=== PATIENT | male | born 1980 | race African-American/Black ===

== ENCOUNTER 2023-11-21 11:38 | Emergency (ER) | payer OTHER, SELFPAY ==
--- NOTE | ~2023-11-21 | XR_ITS ---
EXAMINATION: XR knee LT 3V DATE: 11/21/2023 13:44 INDICATION: Left knee pain TECHNIQUE: Three views of the left knee were obtained. COMPARISON: None. FINDINGS: Alignment is normal. No fracture or osteochondral lesion. Joint spaces are normal with no e rosions. No joint effusion/synovitis. Soft tissues are unremarkable. IMPRESSION: 1. No acute osseous abnormality. Reviewed, dictated and finalized at location [facility] [employer]
[2023-11-21 12:19] VITALS: BP 135/96; PULSE 91; RESP 20; TEMP 37.2; O2SAT 100
--- NOTE | 2023-11-21 13:42 | ED.GENADULT ---
HPI - General Adult General Chief complaint: Extremity Injury, Lower Stated complaint: left knee pain Time Seen by Provider: 11/21/23 12:50 Source: patient Mode of arrival: ambulatory Limitations: no limitations History of Present Illness HPI narrative: this is a 43-year-old male who presents to the ED with chief complaint of left knee pain ongoing for several years. Reports it is aggravated worsened normal. Reports pain is worse with walking and gets worse throughout the day. States he was seen by another facility recently and they did not give him any pain pills. Denies fevers, chills, nausea, vomiting, Or any further sites of pain. Related Data Allergies Allergy/AdvReac Type Severity Reaction Status Date / Time No Known Allergies Allergy Verified 11/21/23 13:56 Review of Systems Review of Systems: All systems as dictated in HPI Exam Narrative: GENERAL: Well-appearing, well-nourished, and in no acute distress. HEAD: Normocephalic, atraumatic. EYES: PERRLA and EOMI. ENT: Nares clear, no rhinorrhea or epistaxis. Mucous membranes moist. Oropharynx without tonsillar hypertrophy exudate or other lesions. NECK: Supple. No adenopathy or masses. CHEST: No respiratory distress. Clear to auscultation. No wheezes rales or rhonchi HEART: Regular rate and rhythm. No murmur heard. Normal peripheral pulses. ABDOMEN: Soft, nontender, nondistended, normal active bowel sounds. MSK: Left lower extremity: no deformity or swelling to the knee. No bruising. No erythema or warmth. Nearly full active range of motion. mild tenderness to the bilateral joint lines. Neurovascular intact distally. No calf swelling Right lower extremity: Benign SKIN: Warm, dry, no rash. NEURO: Alert and oriented x3. No focal deficits. PSYCH: Normal mood and affect. Course Vital Signs Vital signs: Vital Signs Temperature 99.0 F 11/21/23 12:19 Pulse Rate 91 11/21/23 12:19 Respiratory Rate 20 11/21/23 12:19 Blood Pressure 135/96 H 11/21/23 12:19 Pulse Oximetry 100 11/21/23 12:19 Oxygen Delivery Room Air 11/21/23 12:19 Temperature 99.0 F 11/21/23 12:19 Pulse Rate 91 11/21/23 12:19 Respiratory Rate 20 11/21/23 12:19 Blood Pressure 135/96 H 11/21/23 12:19 Pulse Oximetry 100 11/21/23 12:19 Oxygen Delivery Room Air 11/21/23 12:19 Medical Decision Making MDM Narrative Medical decision making narrative: this is a 43-year-old male who presents to the ED with chief complaint of left knee pain ongoing for several years. Vitals are normal. Exam is benign. No evidence of any inflammatory arthritis. X-rays are normal. Symptoms consistent with Chronic joint pain. He was given prescriptions for steroids and naproxen. Pt will be discharged in stable condition. Return precautions given and supportive measures discussed. Pt is understanding and agreeable with plan for discharge and follow-up with PCP. Vital Signs Vital Signs: Vital Signs Temperature 99.0 F 11/21/23 12:19 Pulse Rate 91 11/21/23 12:19 Respiratory Rate 20 11/21/23 12:19 Blood Pressure 135/96 H 11/21/23 12:19 Pulse Oximetry 100 11/21/23 12:19 Oxygen Delivery Room Air 11/21/23 12:19 Temperature 99.0 F 11/21/23 12:19 Pulse Rate 91 11/21/23 12:19 Respiratory Rate 20 11/21/23 12:19 Blood Pressure 135/96 H 11/21/23 12:19 Pulse Oximetry 100 11/21/23 12:19 Oxygen Delivery Room Air 11/21/23 12:19 Discharge Plan Discharge Clinical Impression: Chronic knee pain Qualifiers: Laterality: left Qualified Code(s): M25.562 - Pain in left knee Patient Disposition: Home, Self-Care Condition: Stable Instructions: Antibiotic Form Additional Instructions: Your x-ray is without any acute findings today. Please use steroids and naproxen for pain control. You can use the crutches as needed for assistance with ambulation. Follow-up with primary care doctor. If you have any new
[2023-11-21] MEDS: NAPROXEN 500 MG TABLET PO (13:57)
[2023-11-21] MEDS: predniSONE 20 MG TABLET 40 MG PO (14:02)
--- NOTE | 2023-11-21 14:07 | PC.NURSE ---
Baldo wrapped to left knee and crutch instructions and demo given.
== END 2023-11-21 14:12 | disposition home or self-care (01) ==
LOC: ANHED 14:01
PROVIDERS: Emergency Provider Physician Assistant; PCP Registered Nurse
DX: M25.562 Pain in left knee (principal); G89.29 Other chronic pain
CPT/HCPCS: 73562; 99283; A9270; J7512

== ENCOUNTER 2024-11-16 09:40 | Emergency (ER) | payer OTHER, SELFPAY ==
--- NOTE | ~2024-11-16 | XR_ITS ---
EXAMINATION: XR hip RT 2V w AP pelvis DATE: 11/16/2024 11:26 INDICATION: Right hip pain. Fall. TECHNIQUE: An anteroposterior view of the pelvis and 2 views of right hip were obtained. COMPARISON: None. FINDINGS: Alignment is normal. No fracture. There is sclerosis in the head of right femur, consistent with osteonecrosis. There is mild right hip osteoarthritis. IMPRESSION: 1. Osteonecrosis of right femoral head. 2. Mild right hip osteoarthritis. Reviewed, dictated and finalized at location A. 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
[2024-11-16 09:49] VITALS: BP 116/72; PULSE 78; RESP 18; TEMP 36.6; O2SAT 99
--- OUTSIDE RECORDS SUMMARY | 2024-11-16 10:17 | XMS_ITS | Data Portability ---
Author Organization [facility] CORYMartín Woody Garrett Address [address] [place] [address] Care Team Providers Care Rhit Name Role Phone JOCELYN PFEIFFER [employer] Director KIRAN HANLEY Scientific Linguist ELLE PRATER [employer] Director Unavailable CHRISTINA BUCHANAN Primary Care Provider Assessment No assessment recorded. Plan of Treatment Reminders Order Date Submit Date Provider Last Modified By Organization Details Last Modified Time Details Appointments NEW PATIEN T 45 2024 01:00P M Zehra Ayoub LCSW Not available Not available Not available ANY 15 2024 11:00A M Christina Buchanan [employer] Not available Not available Not available Lab testos terone , free + total, serum 2023 024 [facility], [address] [facility], [address], [place], [address], 04/12/2024 15:07:48 lipid panel, serum 2024 025 [facility], [address] [facility] [facility], [address], [place], [address], 11/05/2024 22:07:47 CMP, serum or plasma 2024 025 [facility], [address] [facility], [address], [place], [address], 11/05/2024 22:07:48 TSH, ultra- sensit eduar, serum 2024 025 [facility], [address] [place] [address], [address], [place], [address], 11/06/2024 12:10:48 albumi n/crea tinine , mass ratio, urine 2024 025 [facility], [address] [place] [address], [address], [place], [address], 11/06/2024 12:10:47 CBC w/ auto diff 2024 025 [facility], [address] [place] [address], [address], [place], [address], 11/05/2024 22:07:50 HbA1c (hemog lobin A1c), blood 2024 025 [facility] In-Office Order, Internal Use Only DO Not Attach Compendium DO Not Attach Compendium, Do Not Delete/merge, [id number] 11/05/2024 12:22:12 Referral physic al therap ist referr al 2023 024 [facility] Patient Access Centralized Scheduling, Centralized Scheduling, [address] [place], [address], 11/18/2023 12:54:40 podiat rist referr al 2023 024 [facility], [address], [place], [address], 04/29/2024 14:58:55 physic al therap ist referr al - R thigh strain R knee pain over 2 months 2023 024 [facility] Patient Access Centralized Scheduling, Centralized Scheduling, [address] [place], [address], 11/11/2024 18:17:48 Procedures pulse oximet ry (PROC) 03/25/ 2024 03/25/2 024 [facility] In-Office Order, Internal Use Only DO Not Attach Compendium DO Not Attach Compendium, Do Not Delete/merge, [id number] 01/06/2024 15:44:00 pulse oximet ry (PROC) 2023 024 [facility] In-Office Order, Internal Use Only DO Not Attach Compendium DO Not Attach Compendium, Do Not Delete/merge, [id number] 04/08/2024 15:45:42 pulse oximet ry (PROC) 2023 024 [facility] In-Office Order, Internal Use Only DO Not Attach Compendium DO Not Attach Compendium, Do Not Delete/merge, [id number] 07/09/2024 10:41:05 pulse oximet ry (PROC) 2024 025 [facility] In-Office Order, Internal Use Only DO Not Attach Compendium DO Not Attach Compendium, Do Not Delete/merge, [id number] 11/05/2024 11:48:13 Surgeries None record ed. Imaging XR, knee, 3 view 2023 024 [facility] ([facility]), [address] [place], [address], 11/19/2023 10:51:00 Medication Orders atorva statin 40 mg tablet 2023 024 [facility], [address] [place] [address], [id number], 01/06/2024 17:17:49 hydrox yzine HCl 25 mg tablet 2023 024 [facility], [address], [id number], 04/08/2024 14:49:28 triamc inolon e aceton carolyn 0.1 % topica l cream 2023 024 [facility], [address] [place] [address], [id number], 01/08/2024 12:24:36 famoti dine 20 mg tablet 2023 [facility], [facility], [address] [place] [address], [id number], 02/06/2024 15:10:49 meloxi cam 7.5 mg tablet 2023 [facility], [facility], [address] [place] [address], [id number], 04/08/2024 14:49:49 flutic asone propio vianey 50 mcg/ac tuatio n nasal spray, suspen liliana 2023 [facility], [facility], [address] [place] [address], [id number], 01/06/2024 17:17:52 lorata dine 10 mg tablet 2023 [facility], [facility], [address] [place] [address], [id number], 01/07/2024 17:16:21 paola ukast 10 mg tablet 2023 [facility], [facility], [address] [place] [address], [id number], 06/09/2024 18:31:43 gabape ntin 300 mg capsul e 2023 [facility], [facility], [address] [place] [address], [id number], 06/04/2024 17:38:07 atorva statin 40 mg tablet 2023 [facility], [facility], [address] [place] [address], [id number], 06/09/2024 18:31:44 silden afil 100 mg tablet 2023 024 [facility], [facility], [address] [place] [address], [id number], 10/29/2024 13:42:46 meloxi cam 15 mg tablet 2023 [facility], [facility], [address] [place] [address], [id number], 06/09/2024 18:31:44 triamc inolon e aceton carolyn 0.1 % topica l cream 2023 [facility], [facility], [address] [place] [address], [id number], 04/08/2024 15:35:19 famoti dine 20 mg tablet 2023 [facility]24 [facility], [address] [place] [address], [id number], 04/08/2024 15:35:21 flutic asone propio vianey 50 mcg/ac tuatio n nasal spray, suspen liliana 2023 024 [facility], [facility], [address] [place] [address], [id number], 06/09/2024 18:31:45 lorata dine 10 mg tablet 2023 024 [facility], [facility], [address] [place] [address], [id number], 06/04/2024 17:38:07 paola ukast 10 mg tablet 2023 024 [facility], [facility], [address] [place] [address], [id number], 04/08/2024 15:00:08 ketoro lac 30 mg/mL (1 mL) inject ion soluti on 2023 [email or web address] Not available 07/09/2024 16:04:21 gabape ntin 300 mg capsul e 2023 [facility], [facility], [address] [place] [address], [place], [place], [id number], 10/29/2024 13:42:46 atorva statin 40 mg tablet 2023 [facility], [facility], [address] [place] [address], [place], [place], [id number], 10/29/2024 13:42:47 triamc inolon e aceton carolyn 0.1 % topica l cream 2023 [facility], [facility], [address] [place] [address], [place], [place], [id number], 07/09/2024 14:07:19 famoti dine 20 mg tablet 2023 [facility], [address] [place] [address], [id number], 07/09/2024 14:07:18 flutic asone propio vianey 50 mcg/ac tuatio n nasal spray, suspen liliana 2023 [facility], [facility], [address] [place] [address], [place], [place], [id number], 10/29/2024 13:42:46 lorata dine 10 mg tablet 2023 [facility], [facility], [address] [place] [address], [id number], 10/29/2024 13:42:41 paola ukast 10 mg tablet 2023 [facility], [facility], [address] [place] [address] [address], [id number], 10/29/2024 13:42:43 gabape ntin 300 mg capsul e 2024 025 [facility], [address] [place] [address], [id number], 11/05/2024 11:51:32 atorva statin 40 mg tablet 2024 025 [facility], [address] [place] [address], [id number], 11/05/2024 11:42:16 Medrol (Emilio) 4 mg tablet s in a dose pack 2024 025 [facility], [address] [place] [address], [id number], 11/05/2024 11:51:31 famoti dine 20 mg tablet 2024 025 [facility], [address] [place] [address], [id number], 11/05/2024 11:51:31 flutic asone propio vianey 50 mcg/ac tuatio n nasal spray, suspen liliana 2024 025 [facility], [address] [place] [address], [id number], 11/05/2024 11:51:32 lorata dine 10 mg tablet 2024 025 [facility], [address] [place] [address], [id number], 11/05/2024 11:51:30 paola ukast 10 mg tablet 2024 025 [facility], [address] [place] [address], [id number], 11/05/2024 11:51:32 Patient TargetsNo targets recorded. Patient Instructions Encounter Date Encounter Id Patient Instructions Last Modified By Organization Details Last Modified Time 11/18/2023 [id number] knee arthritis: care instructions lorenzo Not available 11/18/2023 12:25:35 ? ? Rest your leg while you have pain, and avoid standing for long periods of time. ? ? Prop up your leg at or above the level of your heart when possible. ? ? Make sure you are eating a balanced diet that is rich in calcium, potassium, and magnesium, especially if you are . ? ? Put ice or a cold pack on the area for 10 to 20 minutes at a time. Put a thin cloth between the ice and your skin. ? ? Your leg may be in a splint, a brace, or an elastic bandage, and you may have crutches to help you walk. yarauz Not available 11/18/2023 12:26:08 01/06/2024 [id number] knee arthritis: care instructions yarauz Not available 01/06/2024 15:36:41 A healthy lifestyle: care instructions yarauz Not available 01/06/2024 15:36:41 learning about stress yarauz Not available 01/06/2024 15:36:41 Indigestion (Dyspepsia): Care Instructions yarauz Not available 01/06/2024 15:36:40 ??Avoid all breads, potatoes, cereal, pasta, rice, margarine, refined sugars, milk yogurt, ice cream, juices, soda (including diet), beer, and man-made or manufactured desserts.?? Enjoy steak, fish, chicken (no skin), pork, butter, vegetables, beans, nuts, whole eggs,?? cheese (low fat or skim), cream in your coffee. Keep groin area clean and dry stop smoking test results Benefits risks of psychotropic medications if you develop suicidal thoughts or behaviors seek immediate reevaluation avoid alcohol when taking psychotropic medications if you develop fevers, chills, diarrhea, muscle symptoms or seizures to seek immediate reevaluation take your medicine as directed Pt. advised to call 911 or go to a local Emergency Department with any SI or HI, thoughts of self harm or any psychiatric emergency. Pt. is deemed safe and appropriate for continued out patient treatment. Pt. advised of the risk benefit ratio of medication, possible side effects and interactions of the meditations. Pt. wishes to continue with the treatment plan. Pt. advised to call or come in sooner than the scheduled appt. if there are any worsening of symptoms or problems with the medication yarauz Not available 01/06/2024 15:42:24 04/08/2024 [id number] knee arthritis: care instructions yarauz Not available 04/08/2024 14:46:49 A healthy lifestyle: care instructions yarauz Not available 04/08/2024 14:46:49 learning about stress yarauz Not available 04/08/2024 14:46:49 Indigestion (Dyspepsia): Care Instructions yarauz Not available 04/08/2024 14:46:49 ??Avoid all breads, potatoes, cereal, pasta, rice, margarine, refined sugars, milk yogurt, ice cream, juices, soda (including diet), beer, and man-made or manufactured desserts.?? Enjoy steak, fish, chicken (no skin), pork, butter, vegetables, beans, nuts, whole eggs,?? cheese (low fat or skim), cream in your coffee. Keep groin area clean and dry stop smoking test results Do not use nitroglycerine Do not take viagra more than once in 24 hours Take viagra 1/2-1 hour before sexual activity yarauz Not available 04/08/2024 14:49:21 07/09/2024 [id number] hamstring strain : care instructions yarauz Not available 07/09/2024 10:37:15 quadriceps strai n: care instructions yarauz Not available 07/09/2024 10:37:16 knee arthritis: care instructions yarauz Not available 07/09/2024 10:37:15 A healthy lifestyle: care instructions yarauz Not available 07/09/2024 10:37:15 Indigestion (Dyspepsia): Care Instructions yarauz Not available 07/09/2024 10:37:15 ??Avoid all breads, potatoes, cereal, pasta, rice, margarine, refined sugars, milk yogurt, ice cream, juices, soda (including diet), beer, and man-made or manufactured desserts.?? Enjoy steak, fish, chicken (no skin), pork, butter, vegetables, beans, nuts, whole eggs,?? cheese (low fat or skim), cream in your coffee. Keep groin area clean and dry stop smoking test results go to PT as directed avoid eating late at night avoid citric foods, chocolate, mints, alcohol, fatty foods, caffeine, spicy foods do not lie down immediately after meals elevate?? head of bed may use pepcid PRn yarauz Not available 07/09/2024 14:01:33 11/05/2024 [id number] knee arthritis: care instructions yarauz Not available 11/05/2024 11:38:39 A healthy lifestyle: care instructions yarauz Not available 11/05/2024 11:38:39 Indigestion (Dyspepsia): Care Instructions yarauz Not available 11/05/2024 11:38:39 ??Avoid all breads, potatoes, cereal, pasta, rice, margarine, refined sugars, milk yogurt, ice cream, juices, soda (including diet), beer, and man-made or manufactured desserts.?? Enjoy steak, fish, chicken (no skin), pork, butter, vegetables, beans, nuts, whole eggs,?? cheese (low fat or skim), cream in your coffee. Keep groin area clean and dry stop smoking test results go to PT as directed avoid eating late at night avoid citric foods, chocolate, mints, alcohol, fatty foods, caffeine, spicy foods do not lie down immediately after meals elevate?? head of bed may use pepcid PRn yarauz Not available 11/05/2024 11:30:40 Reason for Referral Physical Therapist Referral for Pain of left knee region Referring Physician: [facility], Encounter Date: 11/18/2023 [employer] Director Referral for Daniel enital pes planus Congenital pes planus Referring Physician: Christina Buchanan [facility], Encounter Date: 04/08/2024 Physical Therapist Referral for Strain of muscle and/or tendon of thigh R thigh strain R knee pain over 2 months Referring Physician: [facility], Encounter Date: 07/09/2024 Results Created Date Observation Date Name Description Value Unit Range Abnormal Flag Note LastModifiedBy Organization Detail LastModifiedTime 10/29/1910/29/2023 LIPID PANEL cholesterol, total 287 mg/dL 100-19 9 above high normal Not Available [facility] [address] [place] [address], [address], 10/29/2023 23:07:43 10/29/19 24 10/29/2023 LIPID PANEL triglyceride s 138 mg/dL 0-149 Not Available [facility] [address] [place] [address], [id number], 10/29/2023 23:07:43 10/29/19 24 10/29/2023 LIPID PANEL HDL cholesterol 78 mg/dL 40-999 Not Available [facility] [address] [place] [address], [address], 10/29/2023 23:07:43 10/29/19 24 10/29/2023 LIPID PANEL VLDL cholesterol she 28 mg/dL 5-40 Not Available [facility] [address] [place] [address], [address], 10/29/2023 23:07:43 10/29/19 24 10/29/2023 LIPID PANEL LDL chol calc (nih) 201 mg/dL 0-99 above high normal Not Available [facility] [address] [place] [address], [id number], 10/29/2023 23:07:43 10/29/19 24 10/29/2023 COMP. METAB OLIC PANEL (14) glucose 85 mg/dL 70-99 Not Available [facility] [address] [place] [address], [address], 10/29/2023 23:07:44 10/29/19 24 10/29/2023 COMP. METAB OLIC PANEL (14) BUN 19 mg/dL 6-24 Not Available [facility] [address] [place] [address], [address], 10/29/2023 23:07:44 10/29/19 24 10/29/2023 COMP. METAB OLIC PANEL (14) creatinine 0.72 mg/dL 0.76-1 .27 below low normal Not Available [facility] [address] [place] [address], [address], 10/29/2023 23:07:44 10/29/19 24 10/29/2023 COMP. METAB OLIC PANEL (14) eGFR 117 >=60 Units for eGFR value s are mL/mi n/1.7 3 The eGFR Calcu latio n has not been valid ated for patie nts under the age of 18. If test resul ts are displ ayed for a patie nt under the age of 18, disre simran that value . Not Available [facility] [address] [place] [address], [address], 10/29/2023 23:07:44 10/29/19 24 10/29/2023 COMP. METAB OLIC PANEL (14) BUN/creatini ne ratio 27 9-20 above high normal Not Available [facility] [address] [place] [address], [address], 10/29/2023 23:07:44 10/29/19 24 10/29/2023 COMP. METAB OLIC PANEL (14) sodium 142 mmol/ L 134-14 4 Not Available [facility] [address] [place] [address], [address], 10/29/2023 23:07:44 10/29/19 24 10/29/2023 COMP. METAB OLIC PANEL (14) potassium 4.6 mmol/ L 3.5-5. 2 Not Available [facility] [address] [place] [address], [address], 10/29/2023 23:07:44 10/29/19 24 10/29/2023 COMP. METAB OLIC PANEL (14) chloride 100 mmol/ L 96-106 Not Available [facility] [address] [place] [address], [address], 10/29/2023 23:07:44 10/29/19 24 10/29/2023 COMP. METAB OLIC PANEL (14) carbon dioxide, total 26 mmol/ L 20-29 Not Available [facility] [address] [place], [address], 10/29/2023 23:07:44 10/29/19 24 10/29/2023 COMP. METAB OLIC PANEL (14) calcium 10.2 mg/dL 8.7-10 .2 Not Available [facility] [address] [place], [address], 10/29/2023 23:07:44 10/29/19 24 10/29/2023 COMP. METAB OLIC PANEL (14) protein, total 7.9 g/dL 6.0-8. 5 Not Available [facility] [address] [place] [address], [address], 10/29/2023 23:07:44 10/29/19 24 10/29/2023 COMP. METAB OLIC PANEL (14) albumin 5.1 g/dL 4.1-5. 1 Not Available [facility] [address] [place], [address], 10/29/2023 23:07:44 10/29/19 24 10/29/2023 COMP. METAB OLIC PANEL (14) globulin, total 2.8 g/dL 1.5-4. 5 Not Available [facility] [address] [place] [address], [address], 10/29/2023 23:07:44 10/29/19 24 10/29/2023 COMP. METAB OLIC PANEL (14) A/G ratio 1.8 1.2-2. 2 Not Available [facility] [address] [place], [address], 10/29/2023 23:07:44 10/29/19 24 10/29/2023 COMP. METAB OLIC PANEL (14) bilirubin, total 0.6 mg/dL 0.0-1. 2 Not Available [facility] [address] [place], [address], 10/29/2023 23:07:44 10/29/19 24 10/29/2023 COMP. METAB OLIC PANEL (14) alkaline phosphatase 77 IU/L 44-121 Not Available [facility] [address] [place], [address], 10/29/2023 23:07:44 10/29/19 24 10/29/2023 COMP. METAB OLIC PANEL (14) AST (SGOT) 29 IU/L 0-40 Not Available [facility] [address] [place] [address], [address], 10/29/2023 23:07:44 10/29/19 24 10/29/2023 COMP. METAB OLIC PANEL (14) ALT (SGPT) 24 IU/L 0-44 Not Available [facility] [address] [place] [address], [address], 10/29/2023 23:07:44 10/29/19 24 10/29/2023 CBC WITH DIFFE RENTI AL/PL ATELE T WBC 9.0 x10e3 /uL 3.4-10 .8 Not Available [facility] [address] [place], [address], 10/29/2023 23:07:44 10/29/19 24 10/29/2023 CBC WITH DIFFE RENTI AL/PL ATELE T RBC 5.71 x10e6 /uL 4.14-5 .80 Not Available [facility] [address] [place], [address], 10/29/2023 23:07:44 10/29/19 24 10/29/2023 CBC WITH DIFFE RENTI AL/PL ATELE T hemoglobin 15.1 g/dL 13.0-1 7.7 Not Available [facility] [address] [place] [address], [address], 10/29/2023 23:07:44 01/16/20 24 10/29/2023 CBC WITH DIFFE RENTI AL/PL ATELE T hematocrit 49.2 % 37.5-5 1.0 Not Available [facility] [address] [place], [address], 10/29/2023 23:07:44 10/29/19 24 10/29/2023 CBC WITH DIFFE RENTI AL/PL ATELE T MCV 86 fL 79-97 Not Available [facility] [address] [place], [address], 10/29/2023 23:07:44 10/29/19 24 10/29/2023 CBC WITH DIFFE RENTI AL/PL ATELE T MCH 26.4 pg 26.6-3 3.0 below low normal Not Available [facility] [address] [place], [address], 10/29/2023 23:07:44 10/29/19 24 10/29/2023 CBC WITH DIFFE RENTI AL/PL ATELE T MCHC 30.7 g/dL 31.5-3 5.7 below low normal Not Available [facility] [address] [place], [address], 10/29/2023 23:07:44 10/29/19 24 10/29/2023 CBC WITH DIFFE RENTI AL/PL ATELE T RDW 14.0 % 11.5-1 4.5 Not Available [facility] [address] [place], [address], 10/29/2023 23:07:44 10/29/19 24 10/29/2023 CBC WITH DIFFE RENTI AL/PL ATELE T platelets 255 x10e3 /uL 150-45 0 Not Available [facility] [address] [place], [address], 10/29/2023 23:07:44 10/29/19 24 10/29/2023 CBC WITH DIFFE RENTI AL/PL ATELE T neutrophils 64 % notest b. Not Available [facility] [address] [place], [address], 10/29/2023 23:07:44 10/29/19 24 10/29/2023 CBC WITH DIFFE RENTI AL/PL ATELE T lymphs 22 % notest b. Not Available [facility] [address] [place], [address], 10/29/2023 23:07:44 10/29/19 24 10/29/2023 CBC WITH DIFFE RENTI AL/PL ATELE T monocytes 10 % notest b. Not Available [facility] [address] [place], [address], 10/29/2023 23:07:44 10/29/19 24 10/29/2023 CBC WITH DIFFE RENTI AL/PL ATELE T eos 3 % notest b. Not Available [facility] [address] [place], [address], 10/29/2023 23:07:44 10/29/19 24 10/29/2023 CBC WITH DIFFE RENTI AL/PL ATELE T basos 1 % notest b. Not Available [facility] [address] [place] [address], [address], 10/29/2023 23:07:44 10/29/19 24 10/29/2023 CBC WITH DIFFE RENTI AL/PL ATELE T neutrophils (absolute) 5.8 x10e3 /uL 1.4-7. 0 Not Available [facility] [address] [place], [address], 10/29/2023 23:07:44 10/29/19 24 10/29/2023 CBC WITH DIFFE RENTI AL/PL ATELE T lymphs (absolute) 2.0 x10e3 /uL 0.7-3. 1 Not Available [facility] [address] [place], [address], 10/29/2023 23:07:44 10/29/19 24 10/29/2023 CBC WITH DIFFE RENTI AL/PL ATELE T monocytes(ab solute) 0.9 x10e3 /uL 0.1-0. 9 Not Available [facility] [address] [place], [address], 10/29/2023 23:07:44 10/29/19 24 10/29/2023 CBC WITH DIFFE RENTI AL/PL ATELE T eos (absolute) 0.3 x10e3 /uL 0.0-0. 4 Not Available [facility] [address] [place], [address], 10/29/2023 23:07:44 10/29/19 24 10/29/2023 CBC WITH DIFFE RENTI AL/PL ATELE T baso (absolute) 0.1 x10e3 /uL 0.0-0. 2 Not Available [facility] [address] [place], [address], 10/29/2023 23:07:44 10/29/19 24 10/29/2023 CBC WITH DIFFE RENTI AL/PL ATELE T immature granulocytes 0.2 % notest b. Not Available [facility] [address] [place], [address], 10/29/2023 23:07:44 10/29/19 24 10/29/2023 CBC WITH DIFFE RENTI AL/PL ATELE T immature grans (abs) 0.0 x10e3 /uL 0.0-0. 1 Not Available [facility] [address] [place], [address], 10/29/2023 23:07:44 10/29/19 24 10/29/2023 CBC WITH DIFFE RENTI AL/PL ATELE T NRBC 0 % 0-0 Not Available [facility] [address] [place], [address], 10/29/2023 23:07:44 10/29/19 24 10/30/2023 TSH TSH 1.620 uIU/m L 0.450- 4.500 Not Available [facility] ([facility]) [address] [facility], [place], [address], 10/30/2023 08:19:56 10/29/19 24 10/29/2023 HbA1c (hemo globi n A1c), blood HbA1c 5.6 Not Available In-Office Order Internal Use Only DO Not Attach Compendium DO Not Attach Compendium, Do Not Delete/merge, [id number] 10/29/2023 10:48:41 01/06/20 24 01/06/2024 pulse oxime try (PROC ) Resting Pulse Ox 97 Not Available In-Off ice Order Internal Use Only DO Not Attach Compendium DO Not Attach Compendium, Do Not Delete/merge, [id number] 01/06/2024 15:33:56 04/08/20 24 04/09/2024 TESTO STERO NE,FR EE AND TOTAL testosterone 298 NG/dL 264-91 6 Adult male refer ence inter ailyn is based on a popul ation of healt hy nonob elaine males (BMI <30) betwe en 19 and 39 years old. Shayan perez et.al . JCEM 2017, 102;1 161-1 173. PMID: 26431 103. Not Available [facility] ([facility]) [address] [facility], [place], [address], 04/12/2024 15:07:48 04/08/20 24 04/12/2024 TESTO STERO NE,FR EE AND TOTAL free testosterone (direct) 11.6 pg/mL 6.8-21 .5 Not Available [facility] ([facility]) [address] [facility], [place], [address], 04/12/2024 15:07:48 04/08/20 24 04/08/2024 pulse oxime try (PROC ) Resting Pulse Ox 98 Not Available In-Off ice Order Internal Use Only DO Not Attach Compendium DO Not Attach Compendium, Do Not Delete/merge, [id number] 04/08/2024 14:37:47 07/09/20 24 07/09/2024 pulse oxime try (PROC ) Resting Pulse Ox 99 Not Available In-Off ice Order Internal Use Only DO Not Attach Compendium DO Not Attach Compendium, Do Not Delete/merge, [id number] 07/09/2024 10:32:02 11/05/19 25 11/05/2024 LIPID PANEL cholesterol, total 145 mg/dL 100-19 9 Not Available [facility] [address] [place] [address], [address], 11/05/2024 22:07:47 11/05/19 25 11/05/2024 LIPID PANEL triglyceride s 87 mg/dL 0-149 Not Available [facility] [address] [place] [address], [address], 11/05/2024 22:07:47 11/05/19 25 11/05/2024 LIPID PANEL HDL cholesterol 62 mg/dL 40-999 Not Available [facility] [address] [place] [address], [address], 11/05/2024 22:07:47 11/05/19 25 11/05/2024 LIPID PANEL VLDL cholesterol she 17 mg/dL 5-40 Not Available [facility] [address] [place] [address], [address], 11/05/2024 22:07:47 11/05/19 25 11/05/2024 LIPID PANEL LDL chol calc (nih) 77 mg/dL 0-99 Not Available [facility] [address] [place] [address], [address], 11/05/2024 22:07:47 11/05/19 25 11/05/2024 COMP. METAB OLIC PANEL (14) glucose 73 mg/dL 70-99 Not Available [facility] [address] [place] [address], [address], 11/05/2024 22:07:48 11/05/19 25 11/05/2024 COMP. METAB OLIC PANEL (14) BUN 18 mg/dL 6-24 Not Available [facility] [address] [place] [address], [address], 11/05/2024 22:07:48 11/05/19 25 11/05/2024 COMP. METAB OLIC PANEL (14) creatinine 0.83 mg/dL 0.76-1 .27 Not Available [facility] [address] [place], [address], 11/05/2024 22:07:48 11/05/19 25 11/05/2024 COMP. METAB OLIC PANEL (14) eGFR 111 >=60 Units for eGFR value s are mL/mi n/1.7 3 The eGFR Calcu latio n has not been valid ated for patie nts under the age of 18. If test resul ts are displ ayed for a patie nt under the age of 18, disre simran that value . Not Available [facility] [address] [place] [address], [address], 11/05/2024 22:07:48 11/05/19 25 11/05/2024 COMP. METAB OLIC PANEL (14) BUN/creatini ne ratio 21 9-20 above high normal Not Available [facility] [address] [place] [address], [address], 11/05/2024 22:07:48 11/05/19 25 11/05/2024 COMP. METAB OLIC PANEL (14) sodium 143 mmol/ L 134-14 4 Not Available [facility] [address] [place] [address], [address], 11/05/2024 22:07:48 11/05/19 25 11/05/2024 COMP. METAB OLIC PANEL (14) potassium 4.6 mmol/ L 3.5-5. 2 Not Available [facility] [address] [place] [address], [address], 11/05/2024 22:07:48 11/05/19 25 11/05/2024 COMP. METAB OLIC PANEL (14) chloride 103 mmol/ L 96-106 Not Available [facility] [address] [place] [address], [address], 11/05/2024 22:07:48 11/05/19 25 11/05/2024 COMP. METAB OLIC PANEL (14) carbon dioxide, total 29 mmol/ L 20-29 Not Available [facility] [address] [place] [address], [address], 11/05/2024 22:07:48 11/05/19 25 11/05/2024 COMP. METAB OLIC PANEL (14) calcium 9.9 mg/dL 8.7-10 .2 Not Available [facility] [address] [place] [address], [address], 11/05/2024 22:07:48 11/05/19 25 11/05/2024 COMP. METAB OLIC PANEL (14) protein, total 7.1 g/dL 6.0-8. 5 Not Available [facility] [address] [place], [address], 11/05/2024 22:07:48 11/05/19 25 11/05/2024 COMP. METAB OLIC PANEL (14) albumin 4.4 g/dL 4.1-5. 1 Not Available [facility] [address] [place] [address], [address], 11/05/2024 22:07:48 11/05/19 25 11/05/2024 COMP. METAB OLIC PANEL (14) globulin, total 2.7 g/dL 1.5-4. 5 Not Available [facility] [address] [place], [address], 11/05/2024 22:07:48 11/05/19 25 11/05/2024 COMP. METAB OLIC PANEL (14) A/G ratio 2.0 1.2-2. 2 Not Available [facility] [address] [place] [address], [address], 11/05/2024 22:07:48 11/05/19 25 11/05/2024 COMP. METAB OLIC PANEL (14) bilirubin, total 0.5 mg/dL 0.0-1. 2 Not Available [facility] [address] [place], [address], 11/05/2024 22:07:48 11/05/19 25 11/05/2024 COMP. METAB OLIC PANEL (14) alkaline phosphatase 89 IU/L 44-121 Not Available [facility] [address] [place], [address], 11/05/2024 22:07:48 11/05/19 25 11/05/2024 COMP. METAB OLIC PANEL (14) AST (SGOT) 23 IU/L 0-40 Not Available [facility] Department [address] [place], [address], 11/05/2024 22:07:48 11/05/19 25 11/05/2024 COMP. METAB OLIC PANEL (14) ALT (SGPT) 26 IU/L 0-44 Not Available [facility] [address] [place] [address], [address], 11/05/2024 22:07:48 11/05/19 25 11/05/2024 CBC WITH DIFFE RENTI AL/PL ATELE T WBC 6.8 x10e3 /uL 3.4-10 .8 Not Available [facility] [address] [place], [address], 11/05/2024 22:07:50 11/05/19 25 11/05/2024 CBC WITH DIFFE RENTI AL/PL ATELE T RBC 5.30 x10e6 /uL 4.14-5 .80 Not Available [facility] [address] [place] [address], [address], 11/05/2024 22:07:50 11/05/19 25 11/05/2024 CBC WITH DIFFE RENTI AL/PL ATELE T hemoglobin 14.3 g/dL 13.0-1 7.7 Not Available [facility] [address] [place], [address], 11/05/2024 22:07:50 11/05/19 25 11/05/2024 CBC WITH DIFFE RENTI AL/PL ATELE T hematocrit 45.1 % 37.5-5 1.0 Not Available [facility] [address] [place], [address], 11/05/2024 22:07:50 11/05/19 25 11/05/2024 CBC WITH DIFFE RENTI AL/PL ATELE T MCV 85 fL 79-97 Not Available [facility] [address] [place], [address], 11/05/2024 22:07:50 11/05/19 25 11/05/2024 CBC WITH DIFFE RENTI AL/PL ATELE T MCH 27.0 pg 26.6-3 3.0 Not Available [facility] [address] [place], [address], 11/05/2024 22:07:50 11/05/19 25 11/05/2024 CBC WITH DIFFE RENTI AL/PL ATELE T MCHC 31.7 g/dL 31.5-3 5.7 Not Available [facility] [address] [place], [address], 11/05/2024 22:07:50 11/05/19 25 11/05/2024 CBC WITH DIFFE RENTI AL/PL ATELE T RDW 14.5 % 11.5-1 4.5 Not Available [facility] [address] [place], [address], 11/05/2024 22:07:50 11/05/19 25 11/05/2024 CBC WITH DIFFE RENTI AL/PL ATELE T platelets 264 x10e3 /uL 150-45 0 Not Available [facility] [address] [place], [address], 11/05/2024 22:07:50 11/05/19 25 11/05/2024 CBC WITH DIFFE RENTI AL/PL ATELE T neutrophils 52 % notest b. Not Available [facility] [address] [place] [address], [address], 11/05/2024 22:07:50 11/05/19 25 11/05/2024 CBC WITH DIFFE RENTI AL/PL ATELE T lymphs 36 % notest b. Not Available [facility] [address] [place] [address], [address], 11/05/2024 22:07:50 11/05/19 25 11/05/2024 CBC WITH DIFFE RENTI AL/PL ATELE T monocytes 9 % notest b. Not Available [facility] [address] [place] [address], [address], 11/05/2024 22:07:50 11/05/19 25 11/05/2024 CBC WITH DIFFE RENTI AL/PL ATELE T eos 3 % notest b. Not Available [facility] [address] [place] [address], [address], 11/05/2024 22:07:50 11/05/19 25 11/05/2024 CBC WITH DIFFE RENTI AL/PL ATELE T basos 1 % notest b. Not Available [facility] [address] [place], [address], 11/05/2024 22:07:50 11/05/19 25 11/05/2024 CBC WITH DIFFE RENTI AL/PL ATELE T neutrophils (absolute) 3.5 x10e3 /uL 1.4-7. 0 Not Available [facility] [address] [place] [address], [address], 11/05/2024 22:07:50 11/05/19 25 11/05/2024 CBC WITH DIFFE RENTI AL/PL ATELE T lymphs (absolute) 2.4 x10e3 /uL 0.7-3. 1 Not Available [facility] [address] [place], [address], 11/05/2024 22:07:50 11/05/19 25 11/05/2024 CBC WITH DIFFE RENTI AL/PL ATELE T monocytes(ab solute) 0.6 x10e3 /uL 0.1-0. 9 Not Available [facility] [address] [place], [address], 11/05/2024 22:07:50 11/05/19 25 11/05/2024 CBC WITH DIFFE RENTI AL/PL ATELE T eos (absolute) 0.2 x10e3 /uL 0.0-0. 4 Not Available [facility] [address] [place], [address], 11/05/2024 22:07:50 11/05/19 25 11/05/2024 CBC WITH DIFFE RENTI AL/PL ATELE T baso (absolute) 0.0 x10e3 /uL 0.0-0. 2 Not Available [facility] [address] [place], [address], 11/05/2024 22:07:50 11/05/19 25 11/05/2024 CBC WITH DIFFE RENTI AL/PL ATELE T immature granulocytes 0.3 % notest b. Not Available [facility] [address] [place], [address], 11/05/2024 22:07:50 11/05/19 25 11/05/2024 CBC WITH DIFFE RENTI AL/PL ATELE T immature grans (abs) 0.0 x10e3 /uL 0.0-0. 1 Not Available [facility] [address] [place], [address], 11/05/2024 22:07:50 11/05/19 25 11/05/2024 CBC WITH DIFFE RENTI AL/PL ATELE T NRBC 0 % 0-0 Not Available [facility] [address] [place], [address], 11/05/2024 22:07:50 11/05/19 25 11/06/2024 ALBUM IN/CR EATIN INE RATIO ,URIN E creatinine, urine 116.9 mg/dL notest ab. Not Available [facility] ([facility]) [address] [place], [address], 11/06/2024 12:10:47 11/05/19 25 11/06/2024 ALBUM IN/CR EATIN INE RATIO ,URIN E albumin, urine 3.2 ug/mL notest ab. Not Available [facility] ([facility]) [address] [place], [address], 11/06/2024 12:10:47 11/05/19 25 11/06/2024 ALBUM IN/CR EATIN INE RATIO ,URIN E alb/creat ratio 3 mg/g_ creat 0-29 Jenny l: 0 - 29 Moder ately incre ased: 30 - 300 Sever marly incre ased: >300 Not Available [facility] ([facility]) [address] [facility], [place], [address], 11/06/2024 12:10:47 11/05/19 25 11/06/2024 TSH TSH 0.793 uIU/m L 0.450- 4.500 Not Available [facility] ([facility]) [address] [place], [address], 11/06/2024 12:10:48 11/05/19 25 11/05/2024 HbA1c (hemo globi n A1c), blood HbA1c 5.6 Not Available In-Office Order Internal Use Only DO Not Attach Compendium DO Not Attach Compendium, Do Not Delete/merge, [id number] 11/05/2024 11:31:16 11/05/19 25 11/05/2024 pulse oxime try (PROC ) Resting Pulse Ox 97 Not Available In-Off ice Order Internal Use Only DO Not Attach Compendium DO Not Attach Compendium, Do Not Delete/merge, [id number] 11/05/2024 11:30:35 10/18/19 24 2023 XR, wrist No observ ation record ed. [facility] [address] [place], [address], 10/22/2023 13:59:54 11/19/19 24 11/19/2023 XR, knee, 3 view No observ ation record ed. [facility] [address] [place], [address], 01/06/2024 15:39:01 11/21/19 24 11/21/2023 XR, knee, 3 view No observ ation record ed. [place] [address], [place], [address], 01/06/2024 15:39:01 08/21/20 24 08/21/2024 XR, knee, 3 view No observ ation record ed. [facility] [address] [place], [address], 08/21/2024 14:35:20 08/21/20 24 08/21/2024 XR, femur , 1 view No observ ation record ed. [facility] [address] [place], [address], 08/25/2024 14:13:38 11/08/19 25 11/08/2024 imagi ng/di agnos tic resul t No observ ation record ed. [facility] [address] [place], [address], 11/08/2024 18:32:31 11/12/19 25 11/12/2024 imagi ng/di agnos tic resul t No observ ation record ed. [facility] [address] [place], [address], 11/12/2024 19:08:38 Result Notes None recorded. Problems Name Problem SNOMED Code Status Onset Date Resolution Date Notes Provider Name and Address Organization Details Recorded Time Multiple environme ntal allergies Completed 201703/02/2021 STACIA Lezama-RYANNE Attn: Accounting ,[address] [facility], [place], [address] , [facility] 5 11:29:52 Stutterin g 37442621 Active 2020 Not Available [facility] 4 18:38:24 Environme ntal allergy 025848111 Active 2020 Not Available [facility] 4 18:38:24 Hypertens ion screening Active 2020 Not Available [facility] 4 18:38:24 Tobacco user 112154335 Active 2020 Not Available [facility] 4 18:38:24 Family history of Raised blood lipids 204501891 Active 2020 Not Available [facility] 4 18:38:24 Family history of diabetes mellitus in first degree relative 655265650 Active 2020 Not Available [facility] 4 18:38:24 Tobacco use cessation education Active 2020 Not Available [facility] 4 18:38:24 Mixed hyperlipi demia 127450632 Active 2020 Not Available [facility] 4 18:38:24 Former heavy tobacco smoker 67329205452 4100 Active 2020 Not Available [facility] 4 18:38:24 Acquired right hallux valgus 72285632155 4106 Active 2021 Not Available [facility] 4 18:38:24 Acquired left hallux valgus 84247514247 4103 Active 2021 Not Available [facility] 4 18:38:24 Acquired hammer toe of left foot 12983983351 02504 Active 2021 Not Available [facility] 4 18:38:24 Acquired hammer toe of right foot 02211275902 06158 Active 2021 Not Available [facility] 4 18:38:23 Congenita l pes planus 07799508 Active 2021 Not Available [facility] 4 18:38:24 Foot pain 97517791 Active 2021 Not Available [facility] 4 18:38:24 Osteoarth ritis of knee 797751649 Active 2022 STACIA Lezama- Attn: Accounting ,[address] [place], [address] , [facility] 4 12:17:02 Congenita l pes planus 76502569 Active 20[facility] Att[facility]: Accounting ,[address] [place], [address] , [place] [facility] [place] 4 12:17:02 Normal body mass index 49849034 Active 2022 [facility] Att[facility]: Accounting ,[address] [place], [address] , [place] 4 12:17:02 Pain of left knee region 63861260913 4109 Active 2023 COOPER Lezama Attn: Accounting ,[address] [place], [address] , [place] [facility] 4 12:25:20 Multiple environme ntal allergies Active 2023 TEQUILA Lezama Attn: Accounting ,[address] [place], [address] , [place] 5 11:29:52 Idiopathi c periphera l neuropath y 04879900 Active 2023 COOPER Lezama Attn: Accounting ,[address] [place], [address] , [place] [facility] 5 11:29:52 Strain of muscle and/or tendon of thigh 870186885 Completed 202311/05/2024 COOPER Lezama Attn: Accounting ,[address] [place], [address] , [facility] 5 11:30:02 Congenita l crossed toes 273652774 Active Not Available [facility] 4 18:38:24 Hyperhidr osis 046119977 Completed 03/02/2021 Ana Maria Whitfield RN null, [place] - [facility] 1 11:31:00 Foot pain 29140708 Completed 12/22/2018 COOPER Lezama Attn: Accounting ,[address] [place], [address] , [facility] 3 10:47:52 Contact dermatiti s 07999069 Completed 03/02/2021 Ana Maria Whitfield RN null, [place] - [facility] 1 11:30:52 Celluliti s of trunk 82192049 Completed 09/12/2016 Ana Maria Whitfield RN null, [place] - [place] 6 13:13:26 Problem Notes None recorded. Procedures Surgical History Date Name Laterality Status Provider Name and Address Organization Details Recorded Time 3 Nail Debridement completed DARRELL MELENDEZ DPM [address], [place], [address], [place] 02/20/2023 15:15:48 3 Nail Debridement completed INNA DUARTE, [place], [address], [place] 11/01/2022 14:41:01 2 Nail Debridement completed INNA DUARTE, [place], [address], [place] 07/25/2022 17:57:44 Imaging Results Imaging Date Name Status LastModified by [facility] Details LastModified Time 2023 XR, wrist completed [facility] [address] [place], [address], 10/22/2023 13:59:54 11/19/2023 XR, knee, [address] [facility] [address] [place], [address], 01/06/2024 15:39:01 11/21/2023 XR, knee, 3 view completed [place] [address] [facility] [address], [place], [address], 01/06/2024 15:39:01 08/21/2024 XR, knee, [address] [facility] [address] [place], [address], 08/21/2024 14:35:20 08/21/2024 XR, femur, [address] [facility] [address] [place], [address], 08/25/2024 14:13:38 11/08/2024 imaging/diag nostic result active [facility] [address] [place], [address], 11/08/2024 18:32:31 11/12/2024 imaging/diag nostic result active [facility] [address] [place], [address], 11/12/2024 19:08:38 Procedure Notes None recorded. Medical Equipment None Reported. Allergies Allergen ID Allergen Name Allergen Category Reaction Reaction Severity Criticality Documentation Date Start Date Code Code System Note Provider Name and Address Organization Details Recorded Time 291937 Product containin g penicilli n and antibioti c (product) medicatio n Not available Not available Not available 06/24/20192017 48735 05 SNOMED Not Available Not Available Not Available Medications Name Sig Start Date Stop Date Status Note LastModified by Organization Details LastModified Time cyclobenz aprine 10 mg tablet TAKE ONE Tablet BY MOUTH TWICE DAILY 05/02 completed Not Available Not Available Not Available amoxicill in 500 mg capsule 04/04 completed Not Available Not Available Not Available Mapap Extra Strength 500 mg tablet 01/17 completed Not Available Not Available Not Available atorvasta tin 40 mg tablet Take 1 tablet every day by oral route, for hypercho lesterol emia. 2024 active Not Available Not Available Not Avai lable bupropion HCl SR 150 mg tablet,12 hr sustained -release Take 1 tablet twice a day by oral route. 12/18 completed Not Available Not Available Not Available doxycycli ne hyclate 100 mg capsule Take 100 mg twice a day by oral route. 12/18 completed Not Available Not Available Not Available diphenhyd ramine 50 mg capsule active Not Available Not Available Not Available polyethyl efra glycol 3350 17 gram oral powder packet MIX 1 PACKET IN LIQUID AND DRINK BY MOUTH ONCE DAILY NEEDED FOR CONSTIPA TION active Not Available Not Available No t Available Xerac AC 6.25 % topical solution Apply by topical route. 05/11 completed switched to Estelle khan spoke with Hernandez Not Available Not Available Not Available azithromy crystal 250 mg tablet TAKE 2 TABLETS BY MOUTH ON DAY 1, THEN TAKE 1 TABLET DAILY ON DAYS 2-5 active Not Available Not Available No t Available ibuprofen 800 mg tablet TAKE 1 TABLET BY MOUTH EVERY 8 HOURS NEEDED FOR PAIN FOR UP TO 10 DAYS. active Not Available Not Available No t Available hydrocodo ne 5 mg-acetam inophen 325 mg tablet 04/04 completed Not Available Not Available Not Available ondansetr on HCl 8 mg tablet 01/17 completed Not Available Not Available Not Available meloxicam 15 mg tablet TAKE ONE TABLET BY MOUTH ONCE EVERY DAY IN THE MORNING NEEDED FOR PAIN active Not Available Not Available No t Available prednison e 20 mg tablet TAKE 3 TABLETS BY MOUTH EVERY DAY 08/30 completed Not Available Not Available Not Available clobetaso l 0.05 % topical cream APPLY TO AFFECTED AREA TWICE A DAY active Not Available Not Available No t Available clindamyc in HCl 150 mg capsule TAKE 1 CAPSULE BY MOUTH EVERY 6 HOURS 10/26 completed Not Available Not Available Not Available allopurin ol 100 mg tablet Take 1 tablet every day by oral route as directed for 30 days. 02/15 completed Not Available Not Available Not Available sulfameth oxazole 800 mg-trimet hoprim 160 mg tablet Take 1 tablet every 12 hours by oral route for 10 days. 12/18 completed Not Available Not Available Not Available tramadol 50 mg tablet 05/11 completed Not Available Not Available Not Available sildenafi l 100 mg tablet Take 1 tablet every day by oral route, for erectile dysfunct ion. 2023 active Not Available Not Available Not Avai lable triamcino lone acetonide 0.1 % topical cream APPLY TOPICALL Y TO THE AFFECTED AREA(S) TWICE DAILY (IN THE MORNING AND EVENING) active Not Available Not Available No t Available ketorolac 30 mg/mL (1 mL) injection solution Inject 1 mL every 6 hours by intramus cular route. 2023 active Not Available Not Available Not Avai lable ketorolac 10 mg tablet TAKE ONE TABLET BY MOUTH EVERY 6 HOURS NEEDED FOR PAIN (DO not take FOR longer THAN FIVE DAYS) 01/31 completed Not Available Not Available Not Available pantopraz ole 20 mg tablet,de layed release 01/17 completed Not Available Not Available Not Available meloxicam 7.5 mg tablet TAKE ONE TABLET BY MOUTH TWICE DAILY 04/08 completed Not Available Not Available Not Available amoxicill in 875 mg tablet Take 1 tablet every 12 hours by oral route for 10 days. 06/23 completed Not Available Not Available Not Available famotidin e 20 mg tablet TAKE ONE TABLET BY MOUTH TWICE DAILY EVERY MORNING & EVENING FOR STOMACH active Not Available Not Available No t Available dicyclomi ne 20 mg tablet TAKE 1 TABLET BY MOUTH FOUR TIMES A DAY 04/08 completed Not Available Not Available Not Available Triple Antibioti c 3.5 mg-400 unit-5,00 0 unit/gram topical ointment 12/22 completed Not Available Not Available Not Available cephalexi n 500 mg capsule 10/05 completed Not Available Not Available Not Available nystatin 100,000 unit/gram topical cream APPLY TO THE AFFECTED AREA(S) TWICE DAILY 01/05 completed Not Available Not Available Not Available diphenhyd ramine 25 mg tablet Take 2 tablets every 4-6 hours by oral route. 11/22 completed Not Available Not Available Not Available prednison e 50 mg tablet 12/22 completed Not Available Not Available Not Available gabapenti n 300 mg capsule Take 1 capsule 3 times a day by oral route for 30 days, for neuropat hy. 2024 active Not Available Not Available Not Avai lable omeprazol e 20 mg capsule,d elayed release TAKE 1 CAPSULE BY MOUTH EVERY DAY 04/08 completed Not Available Not Available Not Available Banophen 25 mg capsule TAKE 2 TABLET(S ) EVERY 4-6 HOURS BY ORAL ROUTE. 10/05 completed Not Available Not Available Not Available monteluka st 10 mg tablet Take 1 tablet every day by oral route, for allergic rhinitis . 2024 active Not Available Not Available Not Avai lable hydroxyzi ne HCl 25 mg tablet TAKE ONE TABLET BY MOUTH EVERY DAY 04/08 completed Not Available Not Available Not Available mupirocin 2 % topical ointment 04/08 completed Not Available Not Available Not Available ibuprofen 600 mg tablet TAKE 1 TABLET BY MOUTH EVERY 6 HOURS NEEDED FOR PAIN 06/26 completed Not Available Not Available Not Available methylpre dnisolone 4 mg tablets in a dose pack Use as directed on package active Not Available Not Available No t Available celecoxib 100 mg capsule TAKE ONE CAPSULE BY MOUTH TWICE DAILY 06/26 completed Not Available Not Available Not Available ondansetr on 4 mg disintegr ating tablet DISSOLVE 1 TABLET UNDER TONGUE EVERY 6 TO 8 HOURS NEEDED active Not Available Not Available No t Available cefdinir 300 mg capsule TAKE 1 CAPSULE EVERY 12 HOURS BY ORAL ROUTE FOR 10 DAYS. 06/26 completed Not Available Not Available Not Available fluticaso ne propionat e 50 mcg/actua tion nasal spray,elzbieta pension [place] 1 spray every day by intranas al route, for nasal congesti on. 2024 active Not Available Not Available Not Avai lable loratadin e 10 mg tablet Take 1 tablet every day by oral route. 2024 active Not Available Not Available Not Avai lable naproxen 500 mg tablet TAKE 1 TABLET BY MOUTH TWICE A DAY WITH FOOD 04/08 completed Not Available Not Available Not Available Siltussin -DM 10 mg-100 mg/5 mL oral syrup 05/11 completed Not Available Not Available Not Available Ciprodex 0.3 %-0.1 % ear drops,elzbieta pension INSTILL 4 DROPS INTO AFFECTED EAR(S) BY OTIC ROUTE 2 TIMES PER DAY FOR 7 DAYS active Not Available Not Available No t Available Mucinex DM 30 mg-600 mg tablet,ex tended release 12 hr Take 1 tablet twice a day by oral route. 01/17 completed Not Available Not Available Not Available Neosporin Plus Pain Relief 3.5 mg-10,000 unit-10 mg/gram topical cream Apply 1 applicat ion 3 times a day by topical route as needed. 12/22 completed Not Available Not Available Not Available Antibioti c (bacitrac in zinc) 500 unit/gram topical ointment 04/04 completed Not Available Not Available Not Available Biofreeze (menthol) 4 % topical gel Apply 1 applicat ion as needed by topical route. 10/26 completed Not Available Not Available Not Available Aspercrem e (lidocain e HCl) 4 % topical Apply 1 applicat ion as needed by topical route. 10/05 completed Not Available Not Available Not Available Vitals Date Recorded Body height Oxygen saturation Oxygen saturation in Arterial blood by Pulse oximetry Heart rate Body temperature Body mass index (BMI) Body weight Systolic blood pressure Diastolic blood pressure Provider Name and Address Organization Details Last Updated DateTime 4 170.18 cm 96 % 96 % 80 /min 97.6 [degF] 24.4 kg/m2 87916.6 2 g 110 mm[Hg] 80 mm[Hg] Brie he [place] [facility] 4 11:46:40 Date Recorded Body height Body mass index (BMI) Body weight Heart rate Body temperature Systolic blood pressure Diastolic blood pressure Provider Name and Address Organization Details Last Updated DateTime 4 170.18 cm 23 kg/m2 45367.6 8 g 80 /min 97.9 [degF] 110 mm[Hg] 64 mm[Hg] Ana Maria Whitfield RN [place] [facility] 4 14:33:24 Date Recorded Body height Body mass index (BMI) Body weight Heart rate Body temperature Systolic blood pressure Diastolic blood pressure Provider Name and Address Organization Details Last Updated DateTime 4 170.18 cm 22.9 kg/m2 38389.2 9 g 92 /min 98.1 [degF] 114 mm[Hg] 64 mm[Hg] Francois Nicholson MA [facility] 4 14:10:48 Date Recorded Body height Body mass index (BMI) Body weight Body temperature Oxygen saturation Oxygen saturation in Arterial blood by Pulse oximetry Heart rate Systolic blood pressure Diastolic blood pressure Provider Name and Address Organization Details Last Updated DateTime 4 170.18 cm 22 kg/m2 01248.3 3 g 97.3 [degF] 99 % 99 % 84 /min 118 mm[Hg] 80 mm[Hg] Brie he MA [facility] 4 10:11:54 Date Recorded Body height Body mass index (BMI) Body weight Body temperature Oxygen saturation Oxygen saturation in Arterial blood by Pulse oximetry Heart rate Systolic blood pressure Diastolic blood pressure Provider Name and Address Organization Details Last Updated DateTime 5 170.18 cm 23.2 kg/m2 84586.6 7 g 97.8 [degF] 97 % 97 % 78 /min 102 mm[Hg] 62 mm[Hg] Brie he MA [facility] 5 11:28:30 Social History Question Answer Notes LastModified by Organizat ion Details LastModified Time Tobacco Smoking Status Former Smoker Recently quit in May 2021 Ana Maria Whitfield RN [facility], [facility] 07/25/2021 14:44:40 Do You Have An Advance Directive? No [email or web address] Information not available 07/25/2021 What Is Your Level Of Alcohol Consumption? None Information not available 09/12/2016 Are You Blind Or Do You Have Difficulty Seeing? No Information not available 02/15/2021 What Is Your Level Of Caffeine Consumption? Moderate Information not available 09/12/2016 In The 14 Days Before Symptom Onset, Have You Had Close Contact With A Laboratory-confi rmed COVID-19 While That Case Was Ill? No Information not available 02/15/2021 In The 14 Days Before Symptom Onset, Have You Had Close Contact With A Person Who Is Under Investigation For COVID-19 While That Person Was Ill? No Information not available 02/15/2021 Have You Been To An Area Known To Be High Risk For COVID-19? No Information not available 02/15/2021 Are You Currently Employed? Yes melissa Information not available 07/25/2021 Are You Deaf Or Do You Have Serious Difficulty Hearing? No Information not available 02/15/2021 What Type Of Diet Are You Following? REGULAR Information not available 09/12/2016 Do You Or Have You Ever Used E-cigarettes Or Vape? Never Used Electronic Cigarettes Information not available 04/04/2020 Education 12 Information no t available 09/12/2016 What Is Your Occupation? [employer] Information not available 05/02/2023 Are There Any Guns Present In Your Home? No Information not available 09/12/2016 Hard Of Hearing Or Deaf In One Or Both Ears? No Information not available 09/12/2016 Legally Blind In One Or Both Eyes? No Information not available 09/12/2016 Marital Status Single Informatio n not available 09/12/2016 What Was The Date Of Your Most Recent Tobacco Screening? 11/05/2024 Information not available 11/05/2024 Performs Monthly Self-breast Exam? No Information not available 09/12/2016 What Is Your Relationship Status? Domestic Partner Information not available 02/15/2021 Do You Use Your Seat Belt Or Car Seat Routinely? Yes Information not available 02/15/2021 Seat Belts Used Routinely Yes Information not available 09/12/2016 Smoke Alarm In Home Yes Information not available 09/12/2016 Do You Have Smoke And Carbon Monoxide Detectors In Your Home? Yes Information not available 02/15/2021 Are You Passively Exposed To Smoke? No Information not available 02/15/2021 Do You Or Have You Ever Used Smokeless Tobacco? Never Used Smokeless Tobacco Information not available 04/04/2020 How Much Tobacco Do You Smoke? 1 PPW 1 Cig Per Day Information not available 04/04/2020 General Stress Level Low Information not available 09/12/2016 Do You Feel Stressed (tense, Restless, Nervous, Or Anxious, Or Unable To Sleep At Night)? [id number] Information not available 02/15/2021 Do You Use Any Illicit Or Recreational Drugs? No Information not available 02/15/2021 Do You Use Sunscreen Routinely? Yes Information not available 09/12/2016 Has Tobacco Cessation Counseling Been Provided? No Information not available 11/18/2023 On What Date Was Tobacco Cessation Counseling Provided? 11/05/2024 Information not available 11/05/2024 How Many Years Have You Smoked Tobacco? 22 Information not available 12/22/2018 Do You Or Have You Ever Used Any Other Forms Of Tobacco Or Nicotine? No Information not available 04/10/2021 Sex: Male Functional Status Question Answer Note LastModified by Organization D etails LastModified Time Are you able to care for yourself? Yes Information not available 02/15/2021 What is your exercise level? Moderate Information not available 09/12/2016 Mental Status None recorded. Family History Relationship Description Onset Age of this Age Resolved Age Notes LastModified by Organization Details LastModified Time Mother Diabetes mellitus [email or web address] Not available 17:09:04 Mother Hypertensive disorder [email or web address] Not available 17:09:04 Father Hypertensive disorder [email or web address] Not available 17:09:04 Sister Hypertensive disorder [email or web address] Not available 2017 13:19:36 Sister Hypertensive disorder yarauz Not available 2017 13:19:43 Sister Hyperlipidem ia yarauz Not available 2020 13:27:13 Sister Osteoarthrit is yarauz Not available 2020 13:27:29 Sister Depressive disorder yarauz Not available 2020 13:27:42 Brother Diabetes mellitus 21 yarauz Not available 2020 15:28:05 Maternal Aunt Diabetes mellitus yarauz Not available 2020 15:27:27 Medical History Condition Response Coronary Artery Disease N Other Y High Blood Pressure N Atrial Fibrillation N Kidney or Bladder Problems N Thyroid Problems N GI Problems N Depression N COPD N Blood Clots N Skin Problems N Anemia N Heart Attack (SD) N Anxiety Disorder N Diabetes N Muscle, Joint, or Bone Problems N Seizures/Epilepsy N Acid Reflux (GERD) N Cancer N Stroke N Asthma N Allergies Y High Cholesterol N Hepatitis N Liver Disease N Headaches Y Heart Failure N Osteoporosis N Immunizations Vaccine Type Date Status Note Provider Name and Address Organization Details Recorded Time COVID-19 vaccine, vector-nr, rS-Ad26, PF, 0.5 mL 04/28/20 21 completed Not Available [facility] 11/14/2023 18:38:24 Tdap 05/13/20 18 completed Not Available [facility] 10/31/2019 02:35:52 Influenza, split virus, quadrivalent, preservative 12/23/19 19 completed Not Available [facility] 10/31/2019 02:42:03 Hep A, adult 12/23/19 19 completed Not Available [facility] 10/31/2019 02:49:50 Hep B, adult 12/23/19 19 completed Not Available [facility] 10/31/2019 02:40:24 Influenza, split virus, quadrivalent, preservative 07/25/20 21 completed Francois Nicholson MA [facility], [facility] 07/25/2021 16:00:26 Influenza, split virus, quadrivalent, PF 06/26/20 22 completed COOPER Lezama Attn: Accounting[address] [place], [address], [facility] 06/27/2022 13:35:41 Influenza, split virus, quadrivalent, preservative 10/04/20 23 cancelled patient objection COOPER Lezama Attn: Accounting[address] [place], [address], [facility] 10/04/2023 14:49:06 Past Encounters Encounter ID Performer Location Encounter Start Date Encounter Closed Date Diagnosis/Indication Diagnosis SNOMED-CT Code Diagnosis ICD10 Code Diagnosis Note [id number] Ana Maria Whitfield RN [facility] [address] [place] [address] 02/10/2015 14:06:16 02/11/2015 18:36:53 Congenital crossed toes 187836150 use comfortabl e shoes change socks daily wear cotton socks Body odor problem 720796453 apply antiperspi rant at night use deodorant in the morning bathe daily change clothes and underwear wash clothes avoid spicey foods Hyperhidrosis 666042443 use antiperspi rant daily Foot pain 87127994 wear comfortabl e shoes/good support [id number] [facility] [address], [place] [address] 05/11/2016 16:32:13 05/13/2016 19:33:06 Contact dermatitis 08843039 L25.9 Cellulitis of trunk 4687 6003 L03.201 [id number] [place] [address] [address] 4 09/12/2016 12:20:14 09/17/2016 18:30:09 Multiple joint pain 16047437 M25.50 Acute bronchitis 0349291 2 J20.9 Tobacco user 703147644 Z 72.0 Upper resp iratory infection 53009569 J06.9 [id number] [place] [address] [place] [address] 01/17/2017 11:55:13 01/22/2017 16:53:53 Bilateral knee pain 2036563504 2792588 M25.562 M25.561 Low back pain 073223503 M54.5 Congenital crossed toes 897816294 Q74.2 use comfortabl e shoes change socks daily wear cotton socks Foot pain 33330602 M79.6 71 M79.672 wear comfortabl e shoes/good support [id number] [facility] [address] [place] [address] 04/29/2017 11:51:13 05/03/2017 16:26:37 Hallux valgus 141275333 M20.11 keep appointmen t with human factors engineer Multiple joint pain 3567 8005 M25.50 knee xray=jenny l LS spine xray=jenny l Tspine xray=ejnny l try Tylenol Arthritis will consider appointmen t with Rheumatolo gist once lab results back Nasal congestion 5591699 0 R09.81 [id number] [facility] [address] [place] [address] 05/13/2018 12:39:09 05/14/2018 18:41:12 Follow-up visit [id number] Z09 stable-wou nd with no drainage-s cabbed is noted Dog bite of lower leg 28 6469803 W54.0XXA L Lower leg with scabbed wound surrounded by dry skin Multiple environmental allergies 839457278 T78.49XD [id number] [facility] [address] [place] [address] 08/06/2018 10:53:20 08/08/2018 15:17:38 Foot pain 71941302 M79.671 M79.672 wear comfortabl e shoes/good support you have bunions and overlappin g toes you need to see a human factors engineer . Multiple joint pain 3567 8005 M25.50 knee xray=jenny l LS spine xray=jenny l T-spine xray=jenny l R foot Hallux valgus deformity try Tylenol Arthritis will send for [facility]men [facility] KRIS and continued joint pain Hallux valgus 718380626 M20.11 M20.12 Make appointmen t with human factors engineer Multiple environmental allergies 265812539 T78.49XD Speckled a ntinuclear antibody pattern 584199894 R76.8 [id number] Wayne Prater [facility] [address] [place] [address] 11/11/2018 14:53:02 11/12/2018 13:18:46 Acquired right hallux valgus 8622372612 18707 M20.11 Foot pain 85954292 M79.6 73 [id number] Wayne Prater [facility] [address] [place] [address] 12/09/2018 11:18:40 12/10/2018 11:17:39 Foot pain 19069148 M79.673 Acquired r ight hallux valgus 5159173047 65937 M20.11 [id number] [facility] [address] [place] [address] 12/22/2018 10:37:01 12/23/2018 08:23:21 Active or passive immunization 674643306 Z23 Multiple environmental allergies 683316070 T78.49XD Acute righ t otitis media 423360906 H66.91 [id number] [facility] [address] [address] 06/23/2019 10:33:48 06/24/2019 17:53:39 Right flank pain 346219758 R10.9 ua dip normalmusc ular tenderness with palpation R CVT area Strain of back muscle 26 2827846 S39.012D muscular tenderness with palpation R CVT area Falling injury 706358265 W19.XXXD fell on R side on 06/14/2019 in the evening [id number] Wayne Prater [facility] [address] [place] [address] 08/06/2019 15:10:12 08/10/2019 10:29:16 Foot pain 53471859 M79.673 Acquired r ight hallux valgus 3077729915 02007 M20.11 Acquired l eft hallux valgus 8891531981 88751 M20.12 Acquired h ammer toe of left foot 6390913301 195038 M20.42 Acquired h ammer toe of right foot 7401767056 392812 M20.41 [id number] [facility] [address], [place] [address] 10/05/2019 11:26:46 10/06/2019 08:53:05 Follow-up visit [id number] Z09 stable-wou nd with no drainage-s cabbed is noted Furunculos is of skin AND/OR subcutaneous tissue 72188799 L02.92 resolvedre commend using antibacter ial soap Contact dermatitis 24301 004 L25.9 Multiple environmental allergies 439097026 T78.49XD Influenza vaccination declined 100498863 Z28.21 [id number] [facility] [address], [place] [address] 11/09/2019 12:12:41 11/11/2019 15:26:32 Contact dermatitis 98849931 L25.9 Follow-up visit 38593974 9 Z09 stable- [id number] [facility] [address] [address] 4 04/04/2020 11:53:43 04/05/2020 06:53:21 Contact dermatitis 45472499 L25.9 Multiple environmental allergies 259182954 T78.49XD Depression screening 171 513721 Z13.31 [id number] A[address]YA [facility] [address] [place] [address] 4 10/05/2020 14:23:01 10/06/2020 11:55:46 [address]10[id number] [facility] [address] [place], [place] [address] 11/22/2020 16:18:59 11/23/2020 17:21:05 Congenital pes planus 29506159 Q66.50 40 y/o AAM with congenital flat feet which causes him feet leann, back pain and knee pain.He has consulted with rheumatolo rochelle on 04/06/2019- had multiple testing ordered/la bsHe has been seeing a human factors engineer Dr. Pfeiffer in [place] will review notes if availableM ay use NSAIDS for discomfort prnHe needs to use orthotics and good shoe supportHe was advised his flat feet are causing his knee and back pain-needs to work ongetting good supportive shoes with orthotics Multiple environmental allergies 679529143 T78.49XD Depression screening 171 819099 Z13.31 negative [id number] [facility] [address] [place] [address] 02/15/2021 12:17:22 02/17/2021 13:48:38 Pre-surgery evaluation 224093124 Z01.818 Normal bod y mass index 12714417 Z68.22 BMI 22 Family his tory of Raised blood lipids 783709255 Z83.49 sister Tobacco user 189363105 Z 72.0 smokes 1 ppd for last 24 years not interested in quitting at present time Hypertensi on screening 946451153 Z13.6 b/p normal HIV screening 509302798 Z11.4 Stuttering 97452043 F80. 81 since childhood had speech therapy in the past Environmental allergy 42 0219748 T78.49XD Patient is on Loratadine 10mg daily refills sent x 6 on 11/22/20 Patient is on Fluticason e NS 2 sprays daily refills sent x 6 0n 11/22/20 Family his tory of diabetes mellitus in first degree relative 379298699 Z83.3 mother [id number] Christina Buchanan [facility] [address] [place] [address] 03/02/2021 11:27:35 03/06/2021 14:52:41 Tobacco use cessation education 196058197 Z71.6 He has been smoking for 22 years 1 pack per week usually about 2 cigs daily sometimes more per patient. He recently had a lipid panel done which shows elevated lipids. He has been counselled on life style modificati ons and wishes to try Rx pills to aide him in quitting. will try Zyban Mixed hyperlipidemia 267 802327 E78.2 02/15/2021 cho 275 trig 159 HDL 101 LDL 153 Avoid all breads, potatoes, cereal, pasta, rice, margarine, refined sugars, milk yogurt, ice cream, juices, soda (including diet), beer, and manmade or manufactur ed desserts. Enjoy steak, fish, chicken (no skin), pork, butter, vegetables , beans, nuts, whole eggs, cheese (low fat or skim), cream in your coffee. [id number] Christina Buchanan [facility] [address] [address] 04/10/2021 12:33:41 04/11/2021 13:04:41 Tobacco use cessation education 055369089 Z71.6 He has been smoking for 22 years 1 pack per week usually about 2 cigs daily sometimes more per patient. He recently had a lipid panel done which shows elevated lipids. He has been counselled on life style modificati ons and wishes to try Rx pills to aide him in quitting.P atient stopped smoking on 03-02- will continue Zyban Mixed hyperlipidemia 267 989374 E78.2 02/15/2021 cho 275 trig 159 HDL 101 LDL 153 Avoid all breads, potatoes, cereal, pasta, rice, margarine, refined sugars, milk yogurt, ice cream, juices, soda (including diet), beer, and man-made or manufactur ed desserts. Enjoy steak, fish, chicken (no skin), pork, butter, vegetables , beans, nuts, whole eggs, cheese (low fat or skim), cream in your coffee. [id number] Christina Buchanan [facility] [address] [place] [address] 06/13/2021 12:38:24 06/13/2021 20:25:06 Follow-up visit [id number] Z09 40y/o aam on the telephone for follow up AOM of R ear treatment from ER at [facility] on 06/05/2021. The patient voices he is still having pain. He completed Doxycyclin e 100mg bid for 10 days as directed. Acute otitis externa 302 42163 H60.509 R Congenital pes planus 23 750614 Q66.50 40 y/o AAM with congenital flat feet which causes him feet leann, back pain and knee pain.He has consulted with rheumatolo gist on 04/06/2019- had multiple testing ordered/la bsHe has been seeing a human factors engineer Dr. Pfeiffer in [place] May use NSAIDS for discomfort prnHe needs to use orthotics and good shoe supportHe was advised his flat feet are causing his knee and back pain-needs to work ongetting good supportive shoes with orthotics Multiple environmental allergies 756579861 T78.49XD [id number] Christina Buchanan [facility] [address], [place] [address] 07/25/2021 14:13:42 07/30/2021 10:08:43 Pre-surgery evaluation 228318461 Z01.818 Normal bod y mass index 61106333 Z68.22 BMI 23.3 Hypertensi on screening 288071504 Z13.6 b/p normal-110 /68 HIV screening 399798007 Z11.4 02/15/2021 HIV NR Stuttering 32501644 F80. 81 since childhood had speech therapy in the past Environmental allergy 42 1869538 T78.49XD Patient is on Loratadine 10mg daily refills sent x 6 on 11/22/20 Patient is on Fluticason e NS 2 sprays daily refills sent x 6 0n 11/22/20 Family his tory of diabetes mellitus in first degree relative 556794417 Z83.3 mother Former hea jennyy tobacco smoker 2061935598 70311 Z87.891 use to smoke 1 ppd for last 24 yearsstop ed smoking 02/2021 Mixed hyperlipidemia 267 333373 E78.2 02/15/2021 cho 275 trig 159 HDL 101 LDL 153 Avoid all breads, potatoes, cereal, pasta, rice, margarine, refined sugars, milk yogurt, ice cream, juices, soda (including diet), beer, and man-made or manufactur ed desserts. Enjoy steak, fish, chicken (no skin), pork, butter, vegetables , beans, nuts, whole eggs, cheese (low fat or skim), cream in your coffee. Administra tion of influenza vaccine 49555600 Z23 Congenital crossed toes 768146917 Q74.2 use comfortabl e shoes change socks daily wear cotton socks Tobacco us e cessation education 710962650 Z71.6 He has been smoking for 22 years 1 pack per week usually about 2 cigs daily sometimes more per patient. He recently had a lipid panel done which shows elevated lipids. He has been counselled on life style modificati ons and wishes to try Rx pills to aide him in quitting.P atient stopped smoking on 03-02-21 Patient stopped Zyban Nocturia 923551219 R35.1 normal UA [id number] Christina Buchanan [facility] [address], [place] [address] 07/27/2021 10:48:48 07/28/2021 07:05:23 Mixed hyperlipidemia 058858458 E78.2 02/15/2021 cho 275 trig 159 HDL 101 LDL 49045/12/2 021cho 325.5trig 507HDL 76LDL 183His lipid profile is worsewill start atorvastat in 40mg daily Avoid all breads, potatoes, cereal, pasta, rice, margarine, refined sugars, milk yogurt, ice cream, juices, soda (including diet), beer, and man-made or manufactur ed desserts. Enjoy steak, fish, chicken (no skin), pork, butter, vegetables , beans, nuts, whole eggs, cheese (low fat or skim), cream in your coffee. Urinary tr act infectious disease 65861386 N39.0 UA +nitrate [id number] Christina Buchanan [facility] [address] [place] [address] 12/18/2021 11:04:28 12/19/2021 05:11:08 Hypertension screening 639645924 Z13.6 b/p normal-110 /68 Mixed hyperlipidemia 267 318573 E78.2 02/15/2021 cho 275 trig 159 HDL 101 LDL 53788/12 021cho 325.5trig 507HDL 76LDL 183His lipid profile is worsewill start atorvastat in 40mg daily Avoid all breads, potatoes, cereal, pasta, rice, margarine, refined sugars, milk yogurt, ice cream, juices, soda (including diet), beer, and man-made or manufactur ed desserts. Enjoy steak, fish, chicken (no skin), pork, butter, vegetables , beans, nuts, whole eggs, cheese (low fat or skim), cream in your coffee. Congenital pes planus 23 312545 Q66.50 40 y/o AAM with congenital flat feet which causes him feet leann, back pain and knee pain.He has consulted with rheumatolo rochelle on 04/06/2019- had multiple testing ordered/la bsHe has been seeing a human factors engineer Dr. Pfeiffer in [place] will review notes if availableM ay use NSAIDS for discomfort prnHe needs to use orthotics and good shoe supportHe was advised his flat feet are causing his knee and back pain-needs to work ongetting good supportive shoes with orthotics Multiple environmental allergies 050108720 T78.49XD igE 955 plus positive multiple specific allergen Depression screening 171 123100 Z13.31 negative Acute bila teral otitis media 442716380 H66.93 Patient seen at ER on 11/27/2021 for deyanira ear paincomple lidia antibiotic s ears still hurt [id number] Christina Buchanan, [facility] [address] [place] [address] 06/26/2022 10:28:38 06/28/2022 08:43:55 Mixed hyperlipidemia 498332854 E78.2 02/15/2021 cho 275 trig 159 HDL 101 LDL 28489/09/14 021cho 325.5trig 507HDL 76LDL 183 12/18/2021 cho 281Trig 200HDL 94LDL 161 Avoid all breads, potatoes, cereal, pasta, rice, margarine, refined sugars, milk yogurt, ice cream, juices, soda (including diet), beer, and man-made or manufactur ed desserts. Enjoy steak, fish, chicken (no skin), pork, butter, vegetables , beans, nuts, whole eggs, cheese (low fat or skim), cream in your coffee. Environmental allergy 42 7789709 T78.49XD Patient is on Loratadine 10mg daily refills sent Patient is on Fluticason e NS 2 sprays daily refills sent Hypertensi on screening 453329189 Z13.6 b/p normal- Congenital pes planus 23 670242 Q66.50 41 y/o AAM with congenital flat feet which causes him feet pain, back pain and knee pain.He has consulted with rheumatolo rochelle on 04/06/2019- had multiple testing ordered/la bsHe was seeing a human factors engineer Dr. Pfeiffer in [place] He is requesting a new human factors engineer referralMa y use NSAIDS for discomfort prnHe needs to use orthotics and good shoe supportHe was advised his flat feet are causing his knee and back pain-needs to work on getting good supportive shoes with orthotics Multiple environmental allergies 770169471 T78.49XD igE 955 plus positive multiple specific allergen Depression screening 171 696469 Z13.31 negative Foot pain 67886574 M79.6 73 wear comfortabl e shoes/good support you have bunions and overlappin g toes you need to return to see human factors engineer . Acquired r ight hallux valgus [id number] 78399 M20.11 Acquired l eft hallux valgus 5940340411 56975 M20.12 Acquired h ammer toe of left foot 3845132687 392619 M20.42 Acquired h ammer toe of right foot 0566277663 630539 M20.41 Administra tion of influenza vaccine 65488582 Z23 [id number] DARRELL MELENDEZ DPM [facility] [address] [address] 07/24/2022 13:50:20 07/26/2022 09:19:58 Foot pain 64918385 M79.671 M79.672 Acquired r ight hallux valgus 6183253905 26846 M20.11 Acquired l eft hallux valgus 1895297502 78915 M20.12 Acquired h ammer toe of left foot 4008391457 262907 M20.42 Acquired h ammer toe of right foot 4941891451 267539 M20.41 Onychomycosis 664549752 B35.1 [id number] [facility] [address], [place] [address] 08/30/2022 14:42:42 08/31/2022 16:17:43 Pre-surgery evaluation 774360443 Z01.818 preoperati ve clearance for right foot bunionecto my and 2nd digit hammertoe correction surgery with human factors engineer . Mixed hyperlipidemia 267 102506 E78.2 02/15/2021 cho 275 trig 159 HDL 101 LDL 153 2cho 281trig 200HDL 94LDL 161Avoid all breads, potatoes, cereal, pasta, rice, margarine, refined sugars, milk yogurt, ice cream, juices, soda (including diet), beer, and man-made or manufactur ed desserts. Enjoy steak, fish, chicken (no skin), pork, butter, vegetables , beans, nuts, whole eggs, cheese (low fat or skim), cream in your coffee. Normal bod y mass index 77051393 Z68.22 BMI 24 Former hea vy tobacco smoker 7084019891 84939 Z87.891 use to smoke 1 ppd for last [place] smoking 02/2021 HIV screening 390485652 Z11.4 02/15/2021 HIV NR Stuttering 75037201 F80. 81 since childhood had speech therapy in the past Environmental allergy 42 6194058 T78.49XD Patient is on Loratadine 10mg daily refills sent x 6 on 07/05 Patient is on Fluticason e NS 2 sprays daily refills sent x 6 0n 07/05 Family his tory of diabetes mellitus in first degree relative 474251684 Z83.3 mother Congenital crossed toes 064698752 Q74.2 use comfortabl e shoes change socks daily wear cotton socks Depression screening 171 410415 Z13.31 PHQ2-9 negative Mental hea lth screening 431744877 Z13.39 VERA-7 negative Bunion 881656975 M21.61 9 Hammer toe 887528311 M20 .41 [id number] Christina Buchanan [facility] [address], [place] [address] 10/26/2022 10:02:46 10/30/2022 09:09:47 Mixed hyperlipidemia 597970836 E78.2 02/15/2021 cho 275 trig 159 HDL 101 LDL 153 2cho 281trig 200HDL 94LDL 161Avoid all breads, potatoes, cereal, pasta, rice, margarine, refined sugars, milk yogurt, ice cream, juices, soda (including diet), beer, and man-made or manufactur ed desserts. Enjoy steak, fish, chicken (no skin), pork, butter, vegetables , beans, nuts, whole eggs, cheese (low fat or skim), cream in your coffee. Environmental allergy 42 6718465 T78.49XD Patient is on Loratadine 10mg daily refills sent x 6 on 07/05 Patient is on Fluticason e NS 2 sprays daily refills sent x 6 0n 07/05 Osteoarthr itis of knee 321839357 M17.0 Pathophysi ology discussed. Patient may have stiffing first thing in the am and pain/disco mfort after movement of joint. Encouraged to decrease weight, aquatic exercises, PT, and orthotics. Congenital pes planus 23 537369 Q66.50 42 y/o AAM with congenital flat feet which causes him feet pain, back pain and knee pain.He has consulted with rheumatolo gist on 04/06/2019- had multiple testing ordered/la bsHe was seeing a human factors engineer Dr. Pfeiffer in [place] He is now seeing another human factors engineer May use NSAIDS for discomfort prnHe needs to use orthotics and good shoe supportHe was advised his flat feet are causing his knee and back pain-needs to work on getting good supportive shoes with orthotics Tinea cruris 149161336 B 35.6 Depression screening 171 987604 Z13.31 PHQ2-9 negative Mental hea [facility] screening 213888236 Z13.39 VERA-7 negative Normal bod y mass index 86758285 Z68.22 BMI 24 [id number] DARRELL MELENDEZ DPM [facility] [address] [place] [address] 11/01/2022 13:18:57 11/05/2022 08:07:14 Foot pain 49012850 M79.671 M79.672 Acquired r ight hallux valgus 8889203201 41500 M20.11 Acquired l eft hallux valgus 2854499942 50850 M20.12 Acquired h ammer toe of left foot 0536798443 988897 M20.42 Acquired h ammer toe of right foot 4983135633 341729 M20.41 Onychomycosis 602643784 B35.1 [id number] STACIA Lezama-[facility] [address] [place] [address] 11/09/2022 14:51:25 11/12/2022 16:19:57 Acute otitis media 6081975 H65.03 ear pain for 2 weekspress ure and some dizzinesst hick mucousstar lidia with cold s/sno fever recordedch illstakes allergy medsnot smoking [id number] Christina Juwan, [employer]-[facility] [address] [place] [address] 01/31/2023 14:03:04 02/01/2023 09:39:31 Mixed hyperlipidemia 009733517 E78.2 02/15/2021 cho 275 trig 159 HDL 101 LDL 153 2cho 281trig 200HDL 94LDL 161 10/26/2022 cho 193trig 111HDL 81LDL 92.1Avoid all breads, potatoes, cereal, pasta, rice, margarine, refined sugars, milk yogurt, ice cream, juices, soda (including diet), beer, and man-made or manufactur ed desserts. Enjoy steak, fish, chicken (no skin), pork, butter, vegetables , beans, nuts, whole eggs, cheese (low fat or skim), cream in your coffee. Environmental allergy 42 5074781 T78.49XD Patient is on Loratadine 10mg daily refills sent x 6 on 02/03 Patient is on Fluticason e NS 2 sprays daily refills sent x 6 0n 02/03 Osteoarthr itis of knee 974484438 M17.0 Pathophysi ology discussed. Patient may have stiffing first thing in the am and pain/disco mfort after movement of joint. Encouraged to decrease weight, aquatic exercises, PT, and orthotics. Congenital pes planus 23 884100 Q66.50 42 y/o AAM with congenital flat feet which causes him feet pain, back pain and knee pain.He has consulted with rheumatolo gist on 04/06/2019- had multiple testing ordered/la bsHe was seeing a human factors engineer Dr. Pfeiffer in [place] He is now seeing another human factors engineer May use NSAIDS for discomfort prnHe needs to use orthotics and good shoe supportHe was advised his flat feet are causing his knee and back pain-needs to work on getting good supportive shoes with orthotics Andrea selbyurijunior 202527888 B 35.6 Depression screening 171 017814 Z13.31 PHQ2-9 negative Mental hea lth screening 082414389 Z13.39 VERA-7 negative Normal bod y mass index 36791937 Z68.22 BMI 22.5 Strain of back muscle 26 0987038 S39.012D muscular tenderness with palpation R CVT area Multiple environmental allergies 173160369 T78.49XD igE 955 plus positive multiple specific allergen [id number] DARRELL MELENDEZ DPM [facility] [address] [place] [address] 02/20/2023 14:32:22 02/21/2023 07:25:13 Foot pain 34814905 M79.671 M79.672 Acquired r ight hallux valgus 3401608659 00142 M20.11 Acquired l eft hallux valgus 1502963626 91809 M20.12 Acquired h ammer toe of left foot 8633009652 507105 M20.42 Acquired h ammer toe of right foot 0064405755 567165 M20.41 Onychomycosis 002088494 B35.1 Idiopathic peripheral neuropathy 73028677 G60.9 Patient was educated about the systemic risks and dangers of neuropathy and loss of gift of pain and risk stratifica tion and exam frequency. Patient was educated on high pressure areas including risks and offloading solutions. Reviewed with patient proper foot care instructio ns and daily self-exami nation and monitoring of the feet. [id number] Christina Buchanan [facility] [address] [place] [address] 04/03/2023 11:35:18 04/04/2023 10:37:14 Pain of right shoulder joint 5163448830 9556920 M25.511 Follow-up visit 96004840 9 Z09 42 y/o aam presents for follow up visit to ER at [facility] last week for R shoulder pain. He voices pain is 10/10. The patient says he was carrying 100 pounds of trash then his R shoulder pain started. 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 The patient voices he is having pain. He was given Rx ??? not sure what but not helping. In addition, he voices gabapentin , flexeril, meloxicam and ibuprofen do not help. He did not get an xray done. Normal bod y mass index 09695301 Z68.22 BMI 22.5 Depression screening 171 976069 Z13.31 PHQ2-9 negative Mental hea lt screening 870905229 Z13.39 VERA-7 negative [id number] [facility] [address] [place] [address] 05/02/2023 14:06:21 05/06/2023 10:37:31 Laceration of left ankle 9914490087 6974004 S91.012D 42 y/o AAM presents for c/o L ankle/late ral malleolus discomfort since getting laceration of area while at work. The patient went to [facility] 04/27/2023w here he had sutures in place.whic h will dissolve on their own. 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 Acute ankle pain 1474749 011 9105 M25.579 Depression screening 171 054693 Z13.31 PHQ2-9 negative Mental hea [facility] screening 601983630 Z13.39 VERA-7 negative Body mass index 20-24 - normal 234246412 Z68.21 [id number] [facility] [address] [place] [address] 10/04/2023 09:47:24 10/08/2023 16:04:16 Mixed hyperlipidemia 438148199 E78.2 02/15/2021 cho 275 trig 159 HDL 101 LDL 153 2cho 281trig 200HDL 94LDL 161 10/26/2022 cho 193trig 111HDL 81LDL 92.1Avoid all breads, potatoes, cereal, pasta, rice, margarine, refined sugars, milk yogurt, ice cream, juices, soda (including diet), beer, and man-made or manufactur ed desserts. Enjoy steak, fish, chicken (no skin), pork, butter, vegetables , beans, nuts, whole eggs, cheese (low fat or skim), cream in your coffee. Environmental allergy 42 9762991 T78.49XD Patient is on Loratadine 10mg daily refills sent x 6 on 02/03 Patient is on Fluticason e NS 2 sprays daily refills sent x 6 0n 02/03 Multiple environmental allergies 753123651 T78.49XD igE 955 plus positive multiple specific allergen Osteoarthr itis of knee 494063195 M17.0 Pathophysi ology discussed. Patient may have stiffing first thing in the am and pain/disco mfort after movement of joint. Encouraged to decrease weight, aquatic exercises, PT, and orthotics. Normal bod y mass index 51228531 Z68.22 BMI 24.5 Congenital pes planus 23 068424 Q66.50 42 y/o AAM with congenital flat feet which causes him feet pain, back pain and knee pain.He has consulted with rheumatolo rochelle on 04/06/2019- had multiple testing ordered/la bsHe was seeing a human factors engineer Dr. Pfeiffer in [place] He is now seeing another human factors engineer May use NSAIDS for discomfort prnHe needs to use orthotics and good shoe supportHe was advised his flat feet are causing his knee and back pain-needs to work on getting good supportive shoes with orthotics Tinea cruris 287338001 B 35.6 Depression screening 171 638491 Z13.31 PHQ2-9 negative Mental hea lt screening 980284786 Z13.39 VERA-7 mild Administra tion of influenza vaccine 11712732 Z23 Stress 08050810 Z73.3 Denies SIHas been having difficulty sleepingHa ving lots of stressorsD oesnt want to try psychother apistPatie nt wants to try oral meds Indigestion 034677492 R1 0.13 [id number] Francois Nicholson MA [facility] [address] [place] [address] 10/29/2023 10:25:51 10/30/2023 15:57:01 Hyperlipidemia 15473355 E78.2 [id number] [facility] [address] [place] [address] 11/18/2023 11:34:22 11/20/2023 16:17:41 Osteoarthritis of knee 001829783 M17.0 Pathophysi ology discussed. Patient may have stiffing first thing in the am and pain/disco mfort after movement of joint. Encouraged to decrease weight, aquatic exercises, PT, and orthotics. Normal bod y mass index 76864246 Z68.22 BMI 24.5 Pain of le ft knee region 3701674371 72501 M25.562 Depression screening 171 615469 Z13.31 PHQ2-9 negative Mental hea [facility] screening 843816190 Z13.39 VERA-7 negative [id number] Roxananesha Buchanan, [facility] [address] [place] [address] 01/06/2024 14:16:04 01/09/2024 12:50:28 Mixed hyperlipidemia 008326723 E78.2 02/15/2021 cho 275 trig 159 HDL 101 LDL 153 2cho 281trig 200HDL 94LDL 161 10/26/2022 cho 193trig 111HDL 81LDL 92.1 10/29/2023 cho 287trig 138HDL 78LDL 201Avoid all breads, potatoes, cereal, pasta, rice, margarine, refined sugars, milk yogurt, ice cream, juices, soda (including diet), beer, and man-made or manufactur ed desserts. Enjoy steak, fish, chicken (no skin), pork, butter, vegetables , beans, nuts, whole eggs, cheese (low fat or skim), cream in your coffee. Normal bod y mass index 03684687 Z68.22 BMI 23 Osteoarthr itis of knee 802618505 M17.0 Pathophysi ology discussed. Patient may have stiffing first thing in the am and pain/disco mfort after movement of joint. Encouraged to decrease weight, aquatic exercises, PT, and orthotics. Multiple environmental allergies 190636772 T78.49XD igE 955 plus positive multiple specific allergen Congenital pes planus 23 114178 Q66.50 43 y/o AAM with congenital flat feet which causes him feet pain, back pain and knee pain.He has consulted with rheumatolo rochelle on 04/06/2019- had multiple testing ordered/la bsHe was seeing a human factors engineer Dr. Pfeiffer in [place] He is now seeing another human factors engineer May use NSAIDS for discomfort prnHe needs to use orthotics and good shoe supportHe was advised his flat feet are causing his knee and back pain-needs to work on getting good supportive shoes with orthotics Stress 21825711 Z73.3 Denies SIHas been having difficulty sleepingHa ving lots of stressorsD oesnt want to try psychother apistPatie nt wants to continue oral meds Depression screening 171 889510 Z13.31 PHQ2-9 negative Mental hea [facility] screening 333038157 Z13.39 VERA-7 mild Indigestion 923877744 R1 0.13 Pruritic rash 76793769 L 28.2 [id number] Christina Buchanan [facility] [address] [place] [address] 04/08/2024 13:58:41 04/13/2024 14:21:38 Mixed hyperlipidemia 080299683 E78.2 02/15/2021 cho 275 trig 159 HDL 101 LDL 153 2cho 281trig 200HDL 94LDL 161 10/26/2022 cho 193trig 111HDL 81LDL 92.1 10/29/2023 cho 287trig 138HDL 78LDL 201Avoid all breads, potatoes, cereal, pasta, rice, margarine, refined sugars, milk yogurt, ice cream, juices, soda (including diet), beer, and man-made or manufactur ed desserts. Enjoy steak, fish, chicken (no skin), pork, butter, vegetables , beans, nuts, whole eggs, cheese (low fat or skim), cream in your coffee. Multiple environmental allergies 838178294 T78.49XD igE 955 plus positive multiple specific allergen Idiopathic peripheral neuropathy 39981332 G60.9 Normal bod y mass index 45157930 Z68.22 BMI 23 Osteoarthr itis of knee 177712487 M17.0 Pathophysi ology discussed. Patient may have stiffing first thing in the am and pain/disco mfort after movement of joint. Encouraged to decrease weight, aquatic exercises, PT, and orthotics. Congenital pes planus 23 513573 Q66.50 43 y/o AAM with congenital flat feet which causes him feet pain, back pain and knee pain.He has consulted with rheumatisaías byrd on 04/06/2019- had multiple testing ordered/la bsHe was seeing a human factors engineer Dr. Pfeiffer in [place] He is now seeing another human factors engineer May use NSAIDS for discomfort prnHe needs to use orthotics and good shoe supportHe was advised his flat feet are causing his knee and back pain-needs to work on getting good supportive shoes with orthotics Stress 78400215 Z73.3 RESOLVEDDe rosales Chaudhrys been having difficulty sleepingHa ving lots of stressorsD oesnt want to try psychother apistPatie nt has stopped oral meds Indigestion 840739075 R1 0.13 Depression screening 171 804709 Z13.31 PHQ2-9 negative Pruritic rash 26080943 L 28.2 Erectile dysfunction 860 308791 F52.21 [id number] Christina Buchanan, [facility] [address] [place] [address] 07/09/2024 10:02:11 07/15/2024 15:34:45 Acquired hammer toe of right foot 3346468855 699549 M20.41 referred to human factors engineer Mixed hyperlipidemia 267 486847 E78.2 02/15/2021 cho 275 trig 159 HDL 101 LDL 153 2cho 281trig 200HDL 94LDL 161 10/26/2022 cho 193trig 111HDL 81LDL 92.1 10/29/2023 cho 287trig 138HDL 78LDL 201Avoid all breads, potatoes, cereal, pasta, rice, margarine, refined sugars, milk yogurt, ice cream, juices, soda (including diet), beer, and man-made or manufactur ed desserts. Enjoy steak, fish, chicken (no skin), pork, butter, vegetables , beans, nuts, whole eggs, cheese (low fat or skim), cream in your coffee. Multiple environmental allergies 202447898 T78.49XD igE 955 plus positive multiple specific allergen Osteoarthr itis of knee 617200871 M17.0 Pathophysi ology discussed. Patient may have stiffing first thing in the am and pain/disco mfort after movement of joint. Encouraged to decrease weight, aquatic exercises, PT, and orthotics. Idiopathic peripheral neuropathy 82510211 G60.9 Normal bod y mass index 36437228 Z68.22 BMI 23 Congenital pes planus 23 641702 Q66.50 43 y/o AAM with congenital flat feet which causes him feet pain, back pain and knee pain.He has consulted with rheumatisaías [facility] on 04/06/2019- had multiple testing ordered/mary Enriquez was seeing a human factors engineer Dr. Pfeiffer in [place] He is now seeing another human factors engineer May use NSAIDS for discomfort prnHe needs to use orthotics and good shoe supportHe was advised his flat feet are causing his knee and back pain-needs to work on getting good supportive shoes with orthotics Pruritic rash 85937891 L 28.2 Indigestion 701370933 R1 0.13 Strain of muscle and/or tendon of thigh 183262639 S76.911D seen in the ER a month ago for this complaingi jero motrin 800mg tid not helping Influenza vaccination declined 747166285 Z28.21 [id number] STACIA Lezama-[facility] [address] [address] 11/05/2024 11:15:35 11/06/2024 13:01:46 Mixed hyperlipidemia 369310551 E78.2 02/15/2021 cho 275 trig 159 HDL 101 LDL 153/ 2cho 281trig 200HDL 94LDL 161 10/26/2022 cho 193trig 111HDL 81LDL 92.1 10/29/2023 cho 287trig 138HDL 78LDL 201Avoid all breads, potatoes, cereal, pasta, rice, margarine, refined sugars, milk yogurt, ice cream, juices, soda (including diet), beer, and man-made or manufactur ed desserts. Enjoy steak, fish, chicken (no skin), pork, butter, vegetables , beans, nuts, whole eggs, cheese (low fat or skim), cream in your coffee. Multiple environmental allergies 122112621 T78.49XD igE 955 plus positive multiple specific allergen Congenital pes planus 23 204289 Q66.50 44 y/o AAM with congenital flat feet which causes him feet pain, back pain and knee pain.He has consulted with rheumatisaías [facility] on 04/06/2019- had multiple testing ordered/mary Enriquez was seeing a human factors engineer Dr. Pfeiffer in [place] He is now seeing another human factors engineer May use NSAIDS for discomfort prnHe needs to use orthotics and good shoe supportHe was advised his flat feet are causing his knee and back pain-needs to work on getting good supportive shoes with orthotics Strain of muscle and/or tendon of thigh 930192294 S76.911D Resolved now he went to [facility] in the ER a month ago for this complaingi jero motrin 800mg tid not helping Acquired h ammer toe of right foot 2962078218 636146 M20.41 referred to human factors engineer Osteoarthr itis of knee 959415535 M17.0 Pathophysi ology discussed. Patient may have stiffing first thing in the am and pain/disco mfort after movement of joint. Encouraged to decrease weight, aquatic exercises, PT, and orthotics. Idiopathic peripheral neuropathy 88050615 G60.9 Normal bod y mass index 65408633 Z68.22 BMI 23.2 Pruritic rash 49760557 L 28.2 Indigestion 082366771 R1 0.13 Influenza vaccination declined 567096879 Z28.21 Stuttering 27784687 F80. 81 since childhood had speech therapy in the past Depression screening 171 462151 Z13.31 PHQ2-9 negative Health Concerns Section Related Observation LastModified by Organization Detai ls LastModified Time None Recorded Concern Status LastModified by Organization Details LastModified Time None Recorded Advance Directives Directive N: Payers Encounter Date Sequence Insurance Name Policy Number Policy Burden Covered Member ID Burden Member ID Guarantor Name 11/18/[address] [facility] ON OR AFTER 04/13/21 (MEDICAID REPLACEMENT - HMO) Xander Henning [id number] Xander Henning 01/06/[address] [facility] ON OR AFTER 04/13/21 (MEDICAID REPLACEMENT - HMO) Xander Henning [id number] Xander Henning 04/08/[address] [facility] ON OR AFTER 04/13/21 (MEDICAID REPLACEMENT - HMO) Xander Henning [id number] Xander Henning 07/09/[address] [facility] ON OR AFTER 04/13/21 (MEDICAID REPLACEMENT - HMO) Xander Henning [id number] Xander Henning 11/05/[address] [facility] ON OR AFTER 04/13/21 (MEDICAID REPLACEMENT - HMO) Xander Henning [id number] Xnader Henning 11/05/2024 2 [place] Xander Henning [id number] Xander Henning Notes Date Note Type Note Provider Name and Address Organization Details Recorded Time 11/18/19 text/htm l KneeReported bypatient.Location:left; anterior; deep Quality:aching; burning; sharp; worsening Severity:moderate Timing:chronic; daytime; nighttime; recurrent Context:overuse Alleviating Factors:nothing helps Aggravating Factors:walking; bending/squatting Associated Symptoms:no weakness; no numbness; no tingling; no swelling; no redness; no warmth; no ecchymosis; no catching/locking; no buckling; no instability; no radiation down leg; no drainage; no fever; no chills; no weight loss; no change in bowel/bladder habits;popping/clicking;grinding Previous Surgery:none Prior Imaging:none Previous Injections:none Previous PT:none Work Related:no 43 y/o AAM presents for c/o L knee pain off and on for months. Denies any injury. He tried NSAIDS Ibuprofen 800mg tid not helping. He has tried Meloxicam and gabapentin but voices not helping. STACIA Lezama-RYANNE Attn: Accounting, [address] [place], [address], [facility] 11/18/2023 12:31:26 01/06/20 24 text/htm l HyperlipidemiaReported bypatient.Type of hyperlipidemia:combined Duration:new onset Prior Tests:07/25/2021 cho 325.5 trig 507 HDL 76 LDL 183 Control:usually well controlled; at goal;usually poorly controlled;worsening;not at goal Current Therapy:currently taking:; last cholesterol level:; 07/25/2021 cho 325.5 trig 507 HDL 76 LDL 183 Compliance:noncompliant;noncompl iant with diet;does not exercise Complications:no coronary artery disease; no peripheral artery disease; no cardiovascular disease Risk Factors:smoking;high lipoprotein(a) levelSinusitis/AllergyReported bypatient.Associated Symptoms:no fever; no weight loss; no hemoptysis; no hematemesis; no difficulty breathing; no feeling of strangulation; no nausea or vomiting; no headache; no facial pain; no sinus pain; no sore throat; no thick phlegm in throat; no ear fullness; no nasal itching; no eye itching; no pain behind the eyes; no skin itching;nasal discharge from both nostrils;constantly clearing the throat;nasal discharge;nasal passage blockage bilaterally Onset/Timing:chronic; recurring Quality:no pain; no itching; no hoarseness; no throbbing; minimal discomfort; improving Duration:long standing; intermittent Severity:does not limit daily activities; no frequent breathing through the mouth; no nosebleeds (epistaxis); no snoring; mild Context:no recent upper respiratory infection; no recent sick contacts; not worse around animals; not worse with environmental exposure; not worse when mowing grass; not worse with certain foods; not worse with odors;worse with seasonal allergen exposure;worse around pollen;worse around dust;worse around molds Risk Factors:no current smoking or tobacco use; no increased stress; no history of nasal trauma; no allergy to aspirin; no history of nasal polyps; no history of asthma; no chemotherapy; no DM; no HIV; no immunodeficiency;history of smoking;family history of allergies Alleviating factors:relief with antihistamine loratadine Aggravating factors:not worse with change in medication; not worse during an upper respiratory infection (a cold); not worse when allergies are active; worse with damp weather; worse with cold weather; worse with dry air 43 y/o AAM here for refill of his chronic medicines.He is taking rx for lipids. He continues to have deyanira feet pain. He wants rx for jock itch. He doesnt want to get Hep A or Hep b Vaccines at this time.He needs refill allergy meds.He c/o deyanira wrist area rash very itchy needs cream. Symptoms for a while. No new soaps, lotions or foods. COOPER Lezama Attn: Accounting, [address] [place], [address], [facility] 01/07/2024 17:19:08 04/08/20 24 text/htm l Erectile DysfunctionReported bypatient.Severity:moderate Duration:intermittent Context:able to maintain a hard erection; able to achieve penetration 50% of the time Modifying Factors:unusual stress or tension with partner(new sexual partner) Associated Symptoms:no dysuria; no penile discharge; normal libidoHyperlipidemiaReported bypatient.Type of hyperlipidemia:combined Duration:new onset Prior Tests:07/25/2021 cho 325.5 trig 507 HDL 76 LDL 183 Control:usually well controlled; at goal;usually poorly controlled;worsening;not at goal Current Therapy:currently taking:; last cholesterol level:; 07/25/2021 cho 325.5 trig 507 HDL 76 LDL 183 Compliance:noncompliant;noncompl iant with diet;does not exercise Complications:no coronary artery disease; no peripheral artery disease; no cardiovascular disease Risk Factors:smoking;high lipoprotein(a) levelSinusitis/AllergyReported bypatient.Associated Symptoms:no fever; no weight loss; no hemoptysis; no hematemesis; no difficulty breathing; no feeling of strangulation; no nausea or vomiting; no headache; no facial pain; no sinus pain; no sore throat; no thick phlegm in throat; no ear fullness; no nasal itching; no eye itching; no pain behind the eyes; no skin itching;nasal discharge from both nostrils;constantly clearing the throat;nasal discharge;nasal passage blockage bilaterally Onset/Timing:chronic; recurring Quality:no pain; no itching; no hoarseness; no throbbing; minimal discomfort; improving Duration:long standing; intermittent Severity:does not limit daily activities; no frequent breathing through the mouth; no nosebleeds (epistaxis); no snoring; mild Context:no recent upper respiratory infection; no recent sick contacts; not worse around animals; not worse with environmental exposure; not worse when mowing grass; not worse with certain foods; not worse with odors;worse with seasonal allergen exposure;worse around pollen;worse around dust;worse around molds Risk Factors:no current smoking or tobacco use; no increased stress; no history of nasal trauma; no allergy to aspirin; no history of nasal polyps; no history of asthma; no chemotherapy; no DM; no HIV; no immunodeficiency;history of smoking;family history of allergies Alleviating factors:relief with antihistamine loratadine Aggravating factors:not worse with change in medication; not worse during an upper respiratory infection (a cold); not worse when allergies are active; worse with damp weather; worse with cold weather; worse with dry air 43 y/o AAM here for refill of his chronic medicines.He is taking rx for lipids. He continues to have deyanira feet pain. He wants rx for jock itch. He doesnt want to get Hep A or Hep b Vaccines at this time.He needs refill allergy meds.He has been having trouble with erections. He wants to try viagra. Reports he loses erections. He doesnt take nitroglycerine.His arm rash comes and goes. Needs Rx refill. COOPER Lezama Attn: Accounting, [address] [place], [address], [facility] 04/10/2024 18:30:58 07/09/20 24 text/htm l HyperlipidemiaReported bypatient.Type of hyperlipidemia:combined Duration:new onset Prior Tests:07/25/2021 cho 325.5 trig 507 HDL 76 LDL 183 Control:usually well controlled; at goal;usually poorly controlled;worsening;not at goal Current Therapy:currently taking:; last cholesterol level:; 07/25/2021 cho 325.5 trig 507 HDL 76 LDL 183 Compliance:noncompliant;noncompl iant with diet;does not exercise Complications:no coronary artery disease; no peripheral artery disease; no cardiovascular disease Risk Factors:smoking;high lipoprotein(a) levelSinusitis/AllergyReported bypatient.Associated Symptoms:no fever; no weight loss; no hemoptysis; no hematemesis; no difficulty breathing; no feeling of strangulation; no nausea or vomiting; no headache; no facial pain; no sinus pain; no sore throat; no thick phlegm in throat; no ear fullness; no nasal itching; no eye itching; no pain behind the eyes; no skin itching;nasal discharge from both nostrils;constantly clearing the throat;nasal discharge;nasal passage blockage bilaterally Onset/Timing:chronic; recurring Quality:no pain; no itching; no hoarseness; no throbbing; minimal discomfort; improving Duration:long standing; intermittent Severity:does not limit daily activities; no frequent breathing through the mouth; no nosebleeds (epistaxis); no snoring; mild Context:no recent upper respiratory infection; no recent sick contacts; not worse around animals; not worse with environmental exposure; not worse when mowing grass; not worse with certain foods; not worse with odors;worse with seasonal allergen exposure;worse around pollen;worse around dust;worse around molds Risk Factors:no current smoking or tobacco use; no increased stress; no history of nasal trauma; no allergy to aspirin; no history of nasal polyps; no history of asthma; no chemotherapy; no DM; no HIV; no immunodeficiency;history of smoking;family history of allergies Alleviating factors:relief with antihistamine loratadine Aggravating factors:not worse with change in medication; not worse during an upper respiratory infection (a cold); not worse when allergies are active; worse with damp weather; worse with cold weather; worse with dry air 43 y/o AAM here for refill of his chronic medicines.He is taking rx for lipids. He continues to have deyanira feet pain. He doesnt want to get Hep A or Hep b Vaccines at this time.He needs refill allergy meds.He reports R thigh strain for which he was seen at [facility] a few weeks back. He was given Motrin 800mg tid but not helping. He is now walking with a cane.His arm rash comes and goes. Needs Rx refill.Patient refuses influenza vaccine COOPER Lezama Attn: Accounting, [address] [place], [address], [facility] 07/09/2024 14:02:29 11/05/19 25 text/htm l HyperlipidemiaReported bypatient.Type of hyperlipidemia:combined Duration:new onset Prior Tests:07/25/2021 cho 325.5 trig 507 HDL 76 LDL 183 Control:usually well controlled; at goal;usually poorly controlled;worsening;not at goal Current Therapy:currently taking:; last cholesterol level:; 07/25/2021 cho 325.5 trig 507 HDL 76 LDL 183 Compliance:noncompliant;noncompl iant with diet;does not exercise Complications:no coronary artery disease; no peripheral artery disease; no cardiovascular disease Risk Factors:smoking;high lipoprotein(a) levelSinusitis/AllergyReported bypatient.Associated Symptoms:no fever; no weight loss; no hemoptysis; no hematemesis; no difficulty breathing; no feeling of strangulation; no nausea or vomiting; no headache; no facial pain; no sinus pain; no sore throat; no thick phlegm in throat; no ear fullness; no nasal itching; no eye itching; no pain behind the eyes; no skin itching;nasal discharge from both nostrils;constantly clearing the throat;nasal discharge;nasal passage blockage bilaterally Onset/Timing:chronic; recurring Quality:no pain; no itching; no hoarseness; no throbbing; minimal discomfort; improving Duration:long standing; intermittent Severity:does not limit daily activities; no frequent breathing through the mouth; no nosebleeds (epistaxis); no snoring; mild Context:no recent upper respiratory infection; no recent sick contacts; not worse around animals; not worse with environmental exposure; not worse when mowing grass; not worse with certain foods; not worse with odors;worse with seasonal allergen exposure;worse around pollen;worse around dust;worse around molds Risk Factors:no current smoking or tobacco use; no increased stress; no history of nasal trauma; no allergy to aspirin; no history of nasal polyps; no history of asthma; no chemotherapy; no DM; no HIV; no immunodeficiency;history of smoking;family history of allergies Alleviating factors:relief with antihistamine loratadine Aggravating factors:not worse with change in medication; not worse during an upper respiratory infection (a cold); not worse when allergies are active; worse with damp weather; worse with cold weather; worse with dry air 44 y/o AAM here for refill of his chronic medicines.He is taking rx for lipids. He continues to have deyanira feet pain. He doesnt want to get Hep A or Hep b Vaccines at this time.He needs refill allergy meds.He reports R thigh strain has resolved . He went to [facility] arm rash comes and goes. Needs Rx refill.Patient refuses influenza vaccine COOPER Lezama Attn: Accounting, [address] [place], [address], [facility] 11/05/2024 11:41:15
--- OUTSIDE RECORDS SUMMARY | 2024-11-16 10:17 | XMS_ITS | Referral Summary ---
Author Organization [facility] Address [address] [place] [address] Care Team Providers Care Gold Layer Name Role Phone Christina Echeverria NP Primary Care Provider [phone] Lyla Youngblood PT Unavailable Unavail able Allergies Active Allergy Reactions Criticality Noted Date Comments Naproxen Vomiting Low 08/15/2021 Penicillins Swelling Medium 10/30/2019 Swelling Medications acyclovir (ZOVIRAX) 400 mg tabletIndicatio ns:Skin/Soft Tissue Infection Take 1 tablet (400 mg total) by mouth 3 (three) times a day 30 tablet 2 Active clobetasoL (TEMOVATE) 0.05 % creamIndication s:Atopic Dermatitis Apply topically 2 (two) times a day 30 g 4 Active Active Problems Problem Noted Date Diagnosed Date Left knee pain 06/30/2021 Social History Tobacco Use Types Packs/Day Years Used Date Smoking Tobacco: Some Days Smokeless Tobacco: Never Personal Safety Answer Date Recorded Have you ever been in or are you currently in a harmful physical or emotional relationship or is someone making you feel afraid or unsafe? 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 Gender Identity Not on file Sexual Orientation Not on file Last Filed Vital Signs Vital Sign Reading Time Taken Comments Blood Pressure 119/80 06/03/2024 3:41 PM CDT Pulse 97 06/03/2024 3:41 PM CDT Temperature 36.4 ??C (97.5 ??F) 06/03/2024 3:41 PM CD T Respiratory Rate 18 06/03/2024 3:41 PM CDT Oxygen Saturation 97% 06/03/2024 3:41 PM CDT Inhaled Oxygen Concentration - - Weight 66.1 kg (145 lb 11.6 oz) 06/03/2024 3:41 PM CDT Height 172.7 cm (5' 8 ) 04/01/2024 4:06 PM CDT Body Mass Index 22.16 04/01/2024 4:06 PM CDT Plan of Treatment Not on file Insurance [facility] Care Teams Gold Layer Relationship Specialty Start Date End Date Christina Echeverria NP [address] [place] [address] PCP - General Nurse Practitioner 06/05/21 Lyla Youngblood, PT Physical Therapist Physical Therapy 12/30/23
--- OUTSIDE RECORDS SUMMARY | 2024-11-16 10:17 | XMS_ITS | Clinical Summary ---
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 Gender Identity Not on file Sexual Orientation Not on file Obstetrics History Last Filed Vital Signs Vital Sign Reading [...] 04/01/2024 4:06 PM CDT Plan of Treatment Health Maintenance Due Date Last Done Comments Depression Screening 1981 Hepatitis C Screening 1981 Prostate Cancer Screening-PSA 1981 Pneumococcal vaccine <65 (1 of 2 - PCV) 1987 Varicella Vaccines (1 of 2 - 13+ 2-dose series) 1994 Regular Well Visit/Exam 18-64 1999 Covid-19 Vaccine (2 - 2023-2 5 season) 2024 04/13/2021 Influenza Vaccine (#1) 2024 12/22/2018 DTaP/Tdap/Td Vaccine (2 - Td or Tdap) 05/13/2028 05/13/2018 HPV Vaccines Aged Out No longer eligi ble based on patient's age to complete this topic Insurance [employer] [facility] Care Teams Web Application Dev Specialist Relationship Specialty Start Date End Date Christina Echeverria NP [address], [place] [address] PCP - General Nurse Practitioner 06/05/21 Lyla Youngblood, PT Physical Therapist Physical Therapy 12/30/23
--- NOTE | 2024-11-16 11:10 | ED.LOWEXIN ---
HPI - Extremity Injury (Lower) General Chief Complaint: Extremity Injury, Lower Stated Complaint: left leg pain, upper resp sx's Time Seen by Provider: 11/16/24 10:41 Source: patient Mode of arrival: ambulatory Limitations: no limitations History of Present Illness HPI Narrative: This is a 44-year-old male who presents to the ED for chief complaint of right leg pain after a fall couple days ago. Patient states that he slipped and fell on the ice. States that he has been able to ambulate but has a lot of pain to the right medial thigh. States that he was seen by his doctor on Saturday for cold-like symptoms and does not want to be evaluated for this today. He is requesting an Baldo wrap and crutches for his thigh pain. Related Data Allergies Allergy/AdvReac Type Severity Reaction Status Date / Time No Known Allergies Allergy Verified 11/21/23 13:56 Review of Systems Review of Systems: All systems as dictated in HPI Exam Narrative: GENERAL: Well-appearing, well-nourished, and in no acute distress. HEAD: Normocephalic, atraumatic. EYES: PERRLA and EOMI. ENT: Nares clear, no rhinorrhea or epistaxis. Mucous membranes moist. Oropharynx without tonsillar hypertrophy exudate or other lesions. NECK: Supple. No adenopathy or masses. CHEST: No respiratory distress. Clear to auscultation. No wheezes rales or rhonchi HEART: Regular rate and rhythm. No murmur heard. Normal peripheral pulses. ABDOMEN: Soft, nontender, nondistended, normal active bowel sounds. MSK: Normal range of motion. No edema. SKIN: Warm, dry, no rash. NEURO: Alert and oriented x4. No focal deficits. PSYCH: Normal mood and affect. Course Vital Signs Vital signs: Vital Signs Temperature 98 F 11/16/24 09:49 Pulse Rate 78 11/16/24 09:49 Respiratory Rate 18 11/16/24 09:49 Blood Pressure 116/72 11/16/24 09:49 Pulse Oximetry 99 11/16/24 09:49 Oxygen Delivery Room Air 11/16/24 09:49 Temperature 98 F 11/16/24 09:49 Pulse Rate 78 11/16/24 09:49 Respiratory Rate 18 11/16/24 09:49 Blood Pressure 116/72 11/16/24 09:49 Pulse Oximetry 99 11/16/24 09:49 Oxygen Delivery Room Air 11/16/24 09:49 MDM - Extremity Injury (Lower) MDM Narrative Medical decision making narrative: This is a 44-year-old male who presents to the ED for chief complaint of right thigh pain after a fall couple days ago. Vitals are normal. Exam is benign. He is ambulatory without assistance. X-rays of the right hip do show osteonecrosis of the femoral head. It is unclear of the etiology of this. I discussed with the patient the findings of the x-ray and encouraged him to follow-up with PCP closely on this finding. Patient will be discharged in stable condition. Supportive measures discussed and return precautions given. Patient is understanding and agreeable with plan for discharge with PCP follow-up. Discharge Plan Discharge Clinical Impression: Pain in right thigh, Other osteonecrosis, right femur Patient Disposition: Home, Self-Care Condition: Stable Instructions: Antibiotic Form Additional Instructions: Your exam and imaging today show part of the right femur is decaying. This needs to be followed up closely with your primary care doctor. Please use crutches as needed for assistance with ambulation. Progress to weight-bearing as tolerated and progress to walking without crutches. Follow-up with your PCP on this issue. If you have any new or worsening symptoms please return to the ER for further evaluation. Patient Language: Portuguese Prescriptions: No Action methylprednisolone [Medrol (Emilio)] 4 mg tablets,dose pack See Rx Instructions .ROUTE .COMPLEX Qty: 21 0RF Rx Instructions: orally per package directions naproxen 500 mg tablet 500 mg PO BID PRN (Reason: pain) Qty: 30 0RF Follow-up/Referrals: Juwan,NEEL Vasquez [Primary Care Provider] - Time of Disposition: 11:12
--- OUTSIDE RECORDS SUMMARY | 2024-11-16 12:56 | XMS_ITS | Referral Summary ---
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
--- OUTSIDE RECORDS SUMMARY | 2024-11-16 12:56 | XMS_ITS | Clinical Summary ---
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
--- NOTE | 2024-11-16 13:58 | PC.NURSE ---
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
== END 2024-11-16 12:20 | disposition home or self-care (01) ==
LOC: ANHED 11:44
PROVIDERS: Emergency Provider Physician Assistant; PCP Registered Nurse
DX: S79.921A Unspecified injury of right thigh, initial encounter (principal); M87.9 Osteonecrosis, unspecified; W00.0XXA Fall on same level due to ice and snow, initial encounter
CPT/HCPCS: 73502; 99283

== ENCOUNTER 2025-03-30 11:44 | Emergency (ER) | payer MEDICARE, MEDICAID, SELFPAY ==
--- NOTE | ~2025-03-30 | CT_ITS ---
EXAMINATION: CT abdomen pelvis w con DATE: 03/30/2025 13:05 INDICATION: Abdominal pain TECHNIQUE: Computed tomography (CT) of the abdomen and pelvis was performed with 100 mL Omnipaque-350 intravenous contrast. Automated exposure control and iterative reconstruction technique were employe d. The dose-length product was 203.13 mGy-cm. COMPARISON: None FINDINGS: Lung bases are clear. Heart size is normal. No pericardial or pleural effusion. Focal hepatic steatos is at the ligamentum teres. Gallbladder, spleen, pancreas, bilateral adrenal glands are normal. Small bilateral renal cysts the larger in the left kidney measuring 1 cm. Bowels including appendix are no rmal. Bladder is normal. No free intraperitoneal gas or fluid. No pathologically enlarged abdominal o r pelvic lymphadenopathy. Chronic osteonecrosis at the right femoral head. IMPRESSION: 1. No acute intra-abdominal/pelvic process. Reviewed, dictated and finalized at location A.
[2025-03-30 11:44] VITALS: BP 136/85; PULSE 86; RESP 18; TEMP 36.6; O2SAT 100
[2025-03-30 11:56] VITALS: BP 117/80; PULSE 77; RESP 18; TEMP 36.7; O2SAT 92
[2025-03-30 12:11] LABS: Add Urine Microscopic? NO; Appearance Urine Clear (Clear); Bilirubin Urine Negative (Negative); Blood Urine Negative (Negative); Color Urine Yellow (Yellow); Glucose Urine UA Negative (Negative); Ketones Urine Negative (Negative); Leukocyte Esterase Ur Negative LEU/UL (Negative); Nitrate Urine Negative (Negative); Protein Urine Negative (Negative); Specific Grav Ur 1.016 (1.001-1.035); Urobilinogen Urine 0.2 mg/dL (<2.0); pH Urine 6.5 (5.0-9.0)
[2025-03-30 12:19] LABS: Alanine Aminotransferase 23 U/L (6-50); Albumin Level 4.4 g/dL (3.5-5.1); Alkaline Phosphatase 61 U/L (38-126); Anion Gap 6 mmol/L (4-12); Aspartate Amino Transferase 35 U/L (17-59); Bilirubin,Total 0.9 mg/dL (0.2-1.3); Blood Urea Nitrogen 19 mg/dL (9-20); Calcium 9.4 mg/dL (8.4-10.2); Carbon Dioxide 26 mmol/L (22-30); Chloride 105 mmol/L (98-107); Estimated Glomerular Filt Rate > 60; Glucose 92 mg/dL (65-110); Lipase 17 U/L (23-300); Potassium 4.6 mmol/L (3.4-5.0); Sodium 137 mmol/L (137-145); Total Protein 7.8 g/dL (6.3-8.2)
--- NOTE | 2025-03-30 12:26 | ED.GENADULT ---
HPI - General Adult General Chief complaint: Abdominal Pain Stated complaint: flank pain radiates to lower extremity Time Seen by Provider: 03/30/25 12:09 History of Present Illness HPI narrative: Year old gentleman presents, she had right-sided abdominal pain. Patient states that he has pain in the right side of his abdomen but also says that he has pain in his right hip area. Patient states he has had no fever denies vomiting denies diarrhea patient states that he just wants to go home Related Data Allergies Allergy/AdvReac Type Severity Reaction Status Date / Time No Known Allergies Allergy Verified 11/21/23 13:56 Review of Systems Review of Systems: A 10 system review of systems was completed on the patient and is negative except for what is stated in the HPI. Nursing and ancillary documentation was reviewed. Exam Narrative: GENERAL: Well-appearing, well-nourished, and in no acute distress. HEAD: Normocephalic, atraumatic. EYES: PERRLA and EOMI. ENT: Nares clear, no rhinorrhea or epistaxis. Mucous membranes moist. NECK: Supple. CHEST: Clear to auscultation. No respiratory distress. HEART: Regular rate and rhythm. No murmur heard. Normal peripheral pulses. ABDOMEN: Soft, nontender, nondistended, normal active bowel sounds. EXTREMITIES: Normal range of motion. No edema. SKIN: Warm, dry, no rash. NEURO: No focal deficits. Alert and oriented x3. PSYCH: Normal mood and affect. Course Vital Signs Vital signs: Vital Signs Temperature 36.6 C 03/30/25 11:44 Pulse Rate 86 03/30/25 11:44 Respiratory Rate 18 03/30/25 11:44 Blood Pressure 136/85 03/30/25 11:44 Pulse Oximetry 100 03/30/25 11:44 Temperature 36.7 C 03/30/25 11:56 Pulse Rate 77 03/30/25 11:56 Respiratory Rate 18 03/30/25 11:56 Blood Pressure 117/80 03/30/25 11:56 Pulse Oximetry 92 03/30/25 11:56 Medical Decision Making [facility] Narrative Medical decision making narrative: Differential diagnosis includes intra-abdominal infection, UTI, pyelonephritis, diverticulitis, colitis, appendicitis Laboratory studies were obtained on the patient showed normal CBC CMP showed no acute abnormalities lipase was below normal urinalysis showed no evidence UTI CT scan of the abdomen pelvis was ordered and has not resulted yet. The patient states he does not want to stay in the ER and would like to leave so acute get a turkey sandwich he was explained to the patient that we could miss a infection or something require surgical intervention patient expressed understanding this and shows to sign out AMA Vital Signs Vital Signs: Vital Signs Temperature 36.6 C 03/30/25 11:44 Pulse Rate 86 03/30/25 11:44 Respiratory Rate 18 03/30/25 11:44 Blood Pressure 136/85 03/30/25 11:44 Pulse Oximetry 100 03/30/25 11:44 Temperature 36.7 C 03/30/25 11:56 Pulse Rate 77 03/30/25 11:56 Respiratory Rate 18 03/30/25 11:56 Blood Pressure 117/80 03/30/25 11:56 Pulse Oximetry 92 03/30/25 11:56 Lab Data 03/30/25 11:54 Labs: Lab Results 03/30/25 03/30/25 Range/Units 11:54 12:01 Sodium 137 (137-145) mmol/L Potassium 4.6 (3.4-5.0) mmol/L Chloride 105 (98-107) mmol/L Carbon Dioxide 26 (22-30) mmol/L Anion Gap 6 (4-12) mmol/L BUN 19 (9-20) mg/dL Creatinine 0.81 (0.7-1.3) mg/dL Estim Creat Clear Calc Not Reportable Estimated GFR > 60 (59 - ) Glucose 92 (65-110) mg/dL Calcium 9.4 (8.4-10.2) mg/dL Total Bilirubin 0.9 (0.2-1.3) mg/dL AST 35 (17-59) U/L ALT 23 (6-50) U/L Alkaline Phosphatase 61 (38-126) U/L Total Protein 7.8 (6.3-8.2) g/dL Albumin 4.4 (3.5-5.1) g/dL Lipase 17 L (23-300) U/L Urine Color Yellow (Yellow) Urine Appearance Clear (Clear) Urine pH 6.5 (5.0-9.0) Ur Specific [place] 1.016 (1.001-1.035) Urine Protein Negative (Negative) mg/dL Urine Glucose (UA) Negative (Negative) mg/dL Urine Ketones Negative (Negative) mg/dL Ur Blood (Man) Negative (Negative) Urine Nitrate Negative (Negative) Urine Bilirubin Negative (Negative) Urine Urobilinogen 0.2 (<2.0) mg/dL Leukocyte Esterase Rfl Negative (Negative) NELLY/UL Discharge Plan Discharge Clinical Impression: Abdominal pain Patient Disposition: Left Against Medical Advice Condition: Stable Instructions: Antibiotic Form, Abdominal Pain (ED) Patient Language: Filipino Prescriptions: No Action methylprednisolone [Medrol (Emilio)] 4 mg tablets,dose pack See Rx Instructions .ROUTE .COMPLEX Qty: 21 0RF Rx Instructions: orally per package directions naproxen 500 mg tablet 500 mg PO BID PRN (Reason: pain) Qty: 30 0RF Follow-up/Referrals: Juwan,NEEL Vasquez [Primary Care Provider] -
--- OUTSIDE RECORDS SUMMARY | 2025-03-30 12:57 | XMS_ITS | Clinical Summary ---
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 Gender Identity Not on file Sexual Orientation Not on file Obstetrics History Last Filed Vital Signs Vital Sign Reading Time Taken Comments Blood Pressure 119/80 06/03/2024 3:41 PM CDT Pulse 97 06/03/2024 3:41 PM CDT Temperature 36.4 C (97.5 F) 06/03/2024 3:41 PM CDT Respiratory Rate 18 06/03/2024 3:41 PM CDT Oxygen Saturation 97% 06/03/2024 3:41 PM CDT Inhaled Oxygen Concentration - - Weight 66.1 kg (145 lb 11.6 oz) 06/03/2024 3:41 PM CDT Height 172.7 cm (5' 8) 04/01/2024 4:06 PM CDT Body Mass Index 22.16 04/01/2024 4:06 PM CDT Plan of Treatment Health Maintenance Due Date Last Done Comments Depression Screening 1981 Hepatitis C Screening 1981 Prostate Cancer Screening-PSA 1981 Varicella Vaccines (1 of 2 - 13+ 2-dose series) 1994 Regular Well Visit/Exam 18-64 1999 Pneumococcal vaccine <65 (1 of 2 - PCV) 2000 Covid-19 Vaccine (2 - 2023-2 5 season) 2024 04/13/2021 Influenza Vaccine (Season Ended) 2025 12/23/19 19 DTaP/Tdap/Td Vaccine (2 - Td or Tdap) 05/13/2028 05/13/2018 Hepatitis B Screening Completed 12/22/2018 HPV Vaccines Aged Out No longer eligi ble based on patient's age to complete this topic Insurance [facility] Care Teams Bolter Helper Relationship Specialty Start Date End Date Christina Echeverria NP [address], [place] [address] PCP - General Nurse Practitioner 06/05/21 Lyla Youngblood, PT Physical Therapist Physical Therapy 12/30/23
--- OUTSIDE RECORDS SUMMARY | 2025-03-30 12:57 | XMS_ITS | Referral Summary ---
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
== END 2025-03-30 13:35 | disposition left against medical advice (07) ==
PROVIDERS: Emergency Provider Emergency Medicine; PCP Registered Nurse
DX: R10.9 Unspecified abdominal pain (principal)
CPT/HCPCS: 36415; 74177; 80053; 81003; 83690; 99284; Q9967